=== PATIENT | female | born 1960 | race Caucasian/White ===

== ENCOUNTER → 2017-03-20 | Outpatient (CLI) | payer OTHER, SELFPAY ==
[~2017-03-20] MED LIST: ACET500 PO; AMIT10 PO; ASPI325EC PO; ASPI81CH PO; CALCIUM WITH V1 EACH PO; CHOL10002 PO; GEMF600 PO; GLUC500 PO; HYDR1TAB94 PO; Hair, Skin & N1 EACH PO; IBUP800 PO; LORA1SY PO; Loratadine10 MG PO; MAGNESIUM PO; Mobic15 MG PO; POTA8 PO; Questran4 GM PO; TYLECOD3 PO; VITAMIN B122500 MC1 PO; VITB2
[2017-03-20 14:31] LABS: BASOPHILS ABSOLUTE AUTO 0.02 K/mm3 (0.00-0.23); BASOPHILS PERCENT AUTO 0 % (0-2); EOSINOPHILS ABSOLUTE AUTO 0.22 K/mm3 (0.00-0.68); EOSINOPHILS PERCENT AUTO 3 % (0-6); Hemoglobin 12.4 g/dL (11.5-16.0); IMMATURE GRAN ABSOLUTE AUTO 0.02 K/mm3 (0.00-0.10); IMMATURE GRAN PERCENT AUTO 0 % (0-1); LYMPHOCYTES ABSOLUTE AUTO 2.56 K/mm3 (0.84-5.20); LYMPHOCYTES PERCENT AUTO 31 % (21-46); MONOCYTES ABSOLUTE AUTO 0.49 K/mm3 (0.16-1.47); MONOCYTES PERCENT AUTO 6 % (4-13); Mean Corpuscular HGB Conc 32.6 g/dL (31.5-36.5); Mean Corpuscular Volume 95 fL (80-100); Mean Platelet Volume 10.4 fL (9.1-12.4); NEUTROPHILS ABSOLUTE AUTO 4.91 K/mm3 (1.96-9.15); NEUTROPHILS PERCENT AUTO 60 % (41-73); Platelet Count 302 K/mm3 (150-400); RDW Coefficient Variation 13.8 % (11.7-14.2); RDW Standard Deviation 47.6 fL (35.1-46.3); White Blood Cell Count 8.22 K/mm3 (4.00-11.30)
[2017-03-20 15:01] LABS: Alanine Aminotransfer (ALT/SGP 30 U/L (12-78); Albumin, Blood 3.4 g/dL (3.4-5.0); Albumin/Globulin Ratio 0.9 (0.8-1.8); Alk Phos 106 U/L (50-136); Anion Gap 8 mmol/L (6-16); Aspartate Aminotrans (AST/SGOT 21 U/L (12-37); Bilirubin, Total 0.2 mg/dL (0.1-1.0); Blood Urea Nitrogen 15 mg/dL (8-24); Bun/Creatinine Ratio 17.7 (12.0-20.0); CO2, Blood 24 mmol/L (21-32); Calcium, Blood 8.8 mg/dL (8.5-10.1); Chloride, Blood 108 mmol/L (98-108); Creatinine, Blood 0.85 mg/dL (0.40-1.00); Globulin, Blood 3.6 g/dL (2.2-4.0); Glomerular Filtration Rate >60 (60-); Glucose, Blood 89 mg/dL (70-99); Magnesium, Blood 2.3 mg/dL (1.6-2.4); Potassium, Blood 4.4 mmol/L (3.5-5.5); Sodium, Blood 140 mmol/L (136-145)
== END ==
LOC: LAB 13:39
PROVIDERS: Family Medicine
DX: R53.83 Other fatigue (principal)
CPT/HCPCS: 80053; 82607; 82746; 83735; 84443; 85025

== ENCOUNTER 2017-09-09 08:56 | Emergency (ER) | payer OTHER, SELFPAY ==
[~2017-09-09] VITALS: Ht 170.2 cm; Wt 120.2 kg
== END 2017-09-09 10:30 | disposition home or self-care (01) ==
LOC: ER 08:56
DX: M25.562 Pain in left knee (principal); Z79.899 Other long term (current) drug therapy; Z79.891 Long term (current) use of opiate analgesic; Z79.52 Long term (current) use of systemic steroids; E78.00 Pure hypercholesterolemia, unspecified
CPT/HCPCS: 73562-LT

== ENCOUNTER → 2017-09-24 | Outpatient (CLI) | payer OTHER, SELFPAY ==
[2017-09-25 10:22] LABS: Adenovirus F 40/41 Not Detected (NOT DETECT); Astrovirus Not Detected (NOT DETECT); Campylobacter Sp Not Detected (NOT DETECT); Cryptosporidium Not Detected (NOT DETECT); Cyclospora Cayetanensis Not Detected (NOT DETECT); E. Coli O157 Not Detected (NOT DETECT); Entamoeba Histolytica Not Detected (NOT DETECT); Enteroaggregative E. coli-EAEC Not Detected (NOT DETECT); Enteropathogenic E. coli-EPEC Not Detected (NOT DETECT); Enterotoxigenic E. coli-ETEC Not Detected (NOT DETECT); Giardia Lamblia Not Detected (NOT DETECT); Norovirus GI/GII Not Detected (NOT DETECT); Plesiomonas Shigelloides Not Detected (NOT DETECT); Rotavirus A Not Detected (NOT DETECT); Salmonella Sp Not Detected (NOT DETECT); Sapovirus Not Detected (NOT DETECT); Shiga Toxin-prod E. coli-STEC Not Detected (NOT DETECT); Shigella/Enteroin E. coli-EIEC Not Detected (NOT DETECT); Vibrio Cholerae Not Detected (NOT DETECT); Vibrio Sp Not Detected (NOT DETECT); Yersinia Enterocolitica Not Detected (NOT DETECT)
[2017-09-26 18:06] LABS: FATS, NEUTRAL Increased (.); FATS, TOTAL Increased (.)
== END ==
LOC: LAB 20:15 → LAB FUT 09-24 17:50
PROVIDERS: Internal Medicine Gastroenterology
DX: R19.7 Diarrhea, unspecified (principal)
CPT/HCPCS: 87507

== ENCOUNTER 2017-09-25 08:20 | Day surgery (SDC) | payer OTHER, SELFPAY | END 2017-09-25 23:20 | disposition home or self-care (01) | LOC: RAD 08:20 | PROVIDERS: Radiology Diagnostic Radiology | PROC: BR29YZZ Computerized Tomography (CT Scan) of Lumbar Spine using Other Contrast (ICD-10-PCS; principal; 2017-09-25 10:30) | DX: M51.16 Intervertebral disc disorders with radiculopathy, lumbar region (principal); M48.56XA Collapsed vertebra, not elsewhere classified, lumbar region, initial encounter for fracture; M43.16 Spondylolisthesis, lumbar region | CPT/HCPCS: 62304; 72132; Q9966 ==

== ENCOUNTER 2017-12-03 08:10 | Day surgery (SDC) | payer OTHER ==
[~2017-12-03] VITALS: Ht 172.7 cm; Wt 113.2 kg
[~2017-12-03 08:10] MED LIST changes: -AMIT10 PO; -ASPI325EC PO; -CALCIUM WITH V1 EACH PO; +CHOL10002; -CHOL10002 PO; -HYDR1TAB94 PO; -Loratadine10 MG PO; -MAGNESIUM PO; -Mobic15 MG PO; +POTA8; -POTA8 PO; -Questran4 GM PO; -VITAMIN B122500 MC1 PO
== END 2017-12-03 13:00 | disposition home or self-care (01) ==
LOC: ORSCSDS 08:10
PROVIDERS: Podiatrist Foot & Ankle Surgery
PROC: 0QSN04Z Reposition Right Metatarsal with Internal Fixation Device, Open Approach (ICD-10-PCS; principal; 2017-12-03 09:30)
PROC: 0SNP0ZZ Release Right Toe Phalangeal Joint, Open Approach (ICD-10-PCS; principal; 2017-12-03 09:30)
PROC: 0L8V0ZZ Division of Right Foot Tendon, Open Approach (ICD-10-PCS; principal; 2017-12-03 09:30)
DX: M20.11 Hallux valgus (acquired), right foot (principal); M20.41 Other hammer toe(s) (acquired), right foot; M77.41 Metatarsalgia, right foot; Z87.891 Personal history of nicotine dependence
CPT/HCPCS: C1713; J0690; J1100; J2250; J2405; J3010; J7120

== ENCOUNTER 2018-06-28 06:06 | Day surgery (SDC) | payer OTHER ==
[~2018-06-28] VITALS: Ht 167.6 cm; Wt 114.3 kg
[~2018-06-28 06:06] MED LIST changes: +AMIT10 PO; +CALCIUM WITH V1 EACH PO; -CHOL10002; +CHOL10002 PO; +Loratadine10 MG PO; +MAGNESIUM PO; +Mobic15 MG PO; -POTA8; +POTA8 PO; +Questran4 GM PO; +VITAMIN B122500 MC1 PO
--- NOTE | 2018-06-28 06:51 | NUR ---
PT ADMITTED TO [facility]. AGREES WITH PLANNED SURGERY, ALLERGIES AND HX REVIEWED. LUNG SOUNDS CLEAR.
--- NOTE | 2018-06-28 06:56 | NUR ---
NOSIN 3 AMPULES X3 TO NARES BILATERALLY.
--- NOTE | 2018-06-28 07:36 | NUR ---
SURGERY DELAYED DUE TO EMERGENCY SURGERY.
--- NOTE | 2018-06-28 18:23 | NUR ---
SHIFT SUMMARY PT HAS DONE WELL POST OP BUT WAS SLEEPY INITIALLY. TOLERATING DIET, VOIDING, WORKED WITH THERAPY. PAIN WELL MANAGED.
--- NOTE | 2018-06-28 19:00 | NUR ---
RECEIVED REPORT FROM PREVIOUS RN ANGELA, PT SITTING UP IN CHAIR, A/O X 4, PLEASANT/COOPERATIVE, CALL LIGHT WITHIN REACH
--- NOTE | 2018-06-28 20:19 | NUR ---
PT NAUSEOUS, VOMITED 900 ML PINK CHUNKY EMESIS. PT WITH 1000 ML MUCOUSY LIGHT BROWN STOOL. PT STATES SHE FEELS SHAKY, NO DIZZINESS OR LIGHTHEADEDNESS. PT STATES SHE HAS IBS WITH LOOSE STOOL NORMALLY. PROVIDED IS AND ENCOURAGED PT TO DEEP BREATH, WILL MEDICATE FOR NAUSEA PER MAR
[2018-06-29 04:58] LABS: BASOPHILS ABSOLUTE AUTO 0.03 K/mm3 (0.00-0.23); BASOPHILS PERCENT AUTO 0 % (0-2); EOSINOPHILS PERCENT AUTO 1 % (0-6); Hematocrit 31.8 % (33.0-51.0); Hemoglobin 10.2 g/dL (11.5-16.0); IMMATURE GRAN ABSOLUTE AUTO 0.04 K/mm3 (0.00-0.10); IMMATURE GRAN PERCENT AUTO 0 % (0-1); LYMPHOCYTES ABSOLUTE AUTO 1.84 K/mm3 (0.84-5.20); LYMPHOCYTES PERCENT AUTO 17 % (21-46); MONOCYTES ABSOLUTE AUTO 0.71 K/mm3 (0.16-1.47); MONOCYTES PERCENT AUTO 7 % (4-13); Mean Corpuscular HGB 32.1 pg (26.0-34.0); Mean Corpuscular HGB Conc 32.1 g/dL (31.5-36.5); Mean Corpuscular Volume 100 fL (80-100); NEUTROPHILS ABSOLUTE AUTO 7.88 K/mm3 (1.96-9.15); NEUTROPHILS PERCENT AUTO 74 % (41-73); Platelet Count 283 K/mm3 (150-400); RDW Coefficient Variation 13.2 % (11.7-14.2); RDW Standard Deviation 48.5 fL (35.1-46.3); Red Blood Cell Count 3.18 M/mm3 (3.80-5.20)
[2018-06-29 05:15] LABS: Anion Gap 8 mmol/L (6-16); Blood Urea Nitrogen 16 mg/dL (8-24); Bun/Creatinine Ratio 16.2 (12.0-20.0); CO2, Blood 23 mmol/L (21-32); Calcium, Blood 8.2 mg/dL (8.5-10.1); Chloride, Blood 110 mmol/L (98-108); Creatinine, Blood 0.99 mg/dL (0.40-1.00); Glomerular Filtration Rate >60 (60-); Glucose, Blood 85 mg/dL (70-99); Potassium, Blood 3.8 mmol/L (3.5-5.5); Sodium, Blood 141 mmol/L (136-145)
--- NOTE | 2018-06-29 06:39 | NUR ---
shift summary: vss, no acute changes. pt up to bathroom x 3 this shift with fww, gait belt, continent of bowel/bladder. Two extra large bm, mucousy/loose. pt states she has IBS at baseline. aquacel dressing on L knee remained c/d/i, no shadowing. operative leg with good pedal pulses/cap refil. pt received IV abx per mar, tolerated PO pain medication with control of pain from 5-6/10 down to 2-3/10.
--- NOTE | 2018-06-29 10:21 | NUR ---
THERAPY HERE TO SEE PT.
[2018-06-29] MEDS ORDERED: ASPI325EC PO (14:47)
[2018-06-29] MEDS ORDERED: HYDR1TAB94 PO (14:49)
--- NOTE | 2018-06-29 15:12 | NUR ---
DISCHARGE: PT/FRIEND REPORTS UNDERSTANDING OF DISCHARGE INSTRUCTIONS. PT REPORTS PAIN TOLERABLE WITH PO PAIN MEDICATION. PT CLEARED THERAPY TO GO HOME. PT SENT WITH BELONGINGS AND SCRIPT. OTHER MEDICATION CALLED TO CANDI FRANCIS PER PT REQ. PT SENT WITH ICE MACHINE AND DRESSING SUPPLIES WELL DR GARCIA HANDOUT. IV OUT EARLIER WNL. PT HAS WALKER HERE AND HAS SCRIPT FOR TOILET RISER.
== END 2018-06-29 15:24 | disposition home or self-care (01) ==
LOC: ORSCMMR 06:06 → ORD 07:30 → ORSCMMR 07:30 → SURS 11:51 → ORSCMMR 06-29 15:24
PROVIDERS: Orthopaedic Surgery
PROC: 0SRD0J9 Replacement of Left Knee Joint with Synthetic Substitute, Cemented, Open Approach (ICD-10-PCS; principal; 2018-06-28 07:30)
DX: M17.12 Unilateral primary osteoarthritis, left knee (principal); E78.00 Pure hypercholesterolemia, unspecified; E66.01 Morbid (severe) obesity due to excess calories; Z79.82 Long term (current) use of aspirin
CPT/HCPCS: 36415; 73560-LT; 80048; 83735; 85025; 88300; 97110; 97116; 97162; 97530; C1713; C1776; J0171; J0690; J0735; J1170; J1885; J2250; J2405; J2795; J3010; J7120

== ENCOUNTER 2018-11-29 06:14 | Day surgery (SDC) | payer OTHER ==
[~2018-11-29] VITALS: Ht 170.2 cm; Wt 98.9 kg
[~2018-11-29 06:14] MED LIST changes: +ALBU90OI INH; +ASPI325EC PO; +Amitriptyline H25 MG PO; +BUPR150ER PO; +Budeprion Sr150 MG PO; +CALCIUM-MAGNES1 EAC1 PO; +CYAN500 PO; +Econazole Nitra15 GM TOP; +FISH OIL PO; +Flonase 0.05% N16 GM; +HYDPAM50 PO; +HYDR1TAB94 PO; +INSULANPEN SC; +LORA.5 PO; +LOSA50 PO; +MELO7.5 PO; +METF500 PO; +NITR100CA PO; +NYSTOP POWDER TOP; +Novolog100 UNIT/1 SC; +OMEP20ER PO; +POTCHL20ER PO; +Pravachol40 MG PO; +SPIR25 PO; +Synthroid137 MCG PO; +TRAZ50 PO
--- NOTE | 2018-11-29 06:59 | NUR ---
Ambulatory in Day Surgery History, Chart, Medications and Allergies reviewed before start of procedure. Lungs clear T/O to Auscultation. Patient confirms NPO status and agrees with scheduled surgery. Pre-Op teaching done. Pt verbalizes understanding.
--- NOTE | 2018-11-29 15:57 | NUR ---
PT WORKING WITH THERAPY.
--- NOTE | 2018-11-29 19:33 | NUR ---
SHIFT SUMMARY PT EATING AND DRINKING. PT VOIDING. PT PAIN CONTROLLED ON PO PAIN MEDICATION. PT WALKING TO BATHROOM WITH MINIMAL ASSIST WITH GAIT BELT AND WALKER. PT WORKED WITH THERAPY. PT USING CALL LIGHT APPT. PT BEEN ASSISTED WITH ADL'S PRN.
[2018-11-30 04:28] LABS: BASOPHILS ABSOLUTE AUTO 0.01 K/mm3 (0.00-0.23); BASOPHILS PERCENT AUTO 0 % (0-2); EOSINOPHILS ABSOLUTE AUTO 0.01 K/mm3 (0.00-0.68); EOSINOPHILS PERCENT AUTO 0 % (0-6); Hematocrit 28.8 % (33.0-51.0); Hemoglobin 9.3 g/dL (11.5-16.0); IMMATURE GRAN ABSOLUTE AUTO 0.03 K/mm3 (0.00-0.10); IMMATURE GRAN PERCENT AUTO 0 % (0-1); LYMPHOCYTES ABSOLUTE AUTO 1.75 K/mm3 (0.84-5.20); LYMPHOCYTES PERCENT AUTO 14 % (21-46); MONOCYTES PERCENT AUTO 4 % (4-13); Mean Corpuscular HGB 31.5 pg (26.0-34.0); Mean Corpuscular HGB Conc 32.3 g/dL (31.5-36.5); Mean Corpuscular Volume 98 fL (80-100); Mean Platelet Volume 11.1 fL (9.1-12.4); NEUTROPHILS ABSOLUTE AUTO 9.91 K/mm3 (1.96-9.15); NEUTROPHILS PERCENT AUTO 81 % (41-73); Platelet Count 305 K/mm3 (150-400); RDW Coefficient Variation 13.8 % (11.7-14.2); RDW Standard Deviation 49.8 fL (35.1-46.3); Red Blood Cell Count 2.95 M/mm3 (3.80-5.20); White Blood Cell Count 12.21 K/mm3 (4.00-11.30)
--- NOTE | 2018-11-30 04:28 | NUR ---
SHIFT SUMMARY: PT POD #1 FOR RT TKA. AQUACEL DRESSING CDI WITH POLAR PACK IN PLACE. PT OUT OF BED TO BATHROOM SEVERAL TIMES WITH SBA AND FWW. TREVON ACTIVITY WELL. VOIDING ADEQUATE AMOUNT. SALINE LOCKED. TREVON PO. DENIES N/V. PAIN MANAGED WITH 1 NORCO AND SCHED TORADOL PER EMAR. PLAN FOR POSSIBLE DISCHARGE HOME TODAY.
[2018-11-30 04:45] LABS: Bun/Creatinine Ratio 15.6 (12.0-20.0); Calcium, Blood 8.2 mg/dL (8.5-10.1); Creatinine, Blood 1.09 mg/dL (0.40-1.00); Magnesium, Blood 1.8 mg/dL (1.6-2.4); Potassium, Blood 4.3 mmol/L (3.5-5.5)
[2018-11-30] MEDS ORDERED: HYDR1TAB94 PO (07:39)
[2018-11-30] MEDS ORDERED: ASPI325EC PO (08:50)
--- NOTE | 2018-11-30 11:02 | NUR ---
DISCHARGE PT EDUCATED ON AND RECEIVED PRINTED DC INSTRUCTIONS AND VERB AN UNDERSTANDING. HARD RX FOR NORCO GIVEN TO PT. PT REPORTS F/U SCHEDULED ALREADY. X2 AQUACEL DRESSING GIVEN TO PT. PT LEFT WITH ALL PERSONAL BELONGINGS AND ESCORTED OUT VIA W/C WITH SON.
== END 2018-11-30 11:06 | disposition home or self-care (01) ==
LOC: ORSCMMR 06:14 → ORD 07:30 → SURS 10:51 → ORSCMMR 10:51 → SURS 13:18 → ORSCMMR 11-30 11:06
PROVIDERS: Orthopaedic Surgery
PROC: 0SRC0J9 Replacement of Right Knee Joint with Synthetic Substitute, Cemented, Open Approach (ICD-10-PCS; principal; 2018-11-29 07:30)
DX: M17.11 Unilateral primary osteoarthritis, right knee (principal); E78.5 Hyperlipidemia, unspecified; J45.909 Unspecified asthma, uncomplicated; Z79.899 Other long term (current) drug therapy; E66.9 Obesity, unspecified; Z68.34 Body mass index [BMI] 34.0-34.9, adult; Z79.82 Long term (current) use of aspirin
CPT/HCPCS: 36415; 73560-RT; 80048; 83735; 85025; 88300; 97110; 97116; 97162; 97530; A9270-GY; C1713; C1776; J0171; J0690; J0735; J1100; J1885; J2250; J2405; J2704; J2795; J3010; J7120

== ENCOUNTER → 2018-12-16 | Outpatient (CLI) | payer OTHER | END | disposition home or self-care (01) | LOC: LAB SHORT 14:43 → LAB SRC 14:43 | PROVIDERS: Registered Nurse | DX: Z12.4 Encounter for screening for malignant neoplasm of cervix (principal) | CPT/HCPCS: G0123 ==

== ENCOUNTER → 2019-01-20 | Outpatient (CLI) | payer OTHER ==
[2019-01-20 19:17] LABS: Source, Urine Clean Catch
[2019-01-20 20:01] LABS: Bilirubin, Urine Neg (Neg); Blood, Urine Neg (Neg); Glucose Qualitative, Urine Neg (Neg); Ketones, Urine Neg (Neg); Leukocyte Esterase, Urine Neg (Neg); Nitrite, Urine Neg (Neg); Protein, Urine Neg (Neg); Specific Gravity, Urine 1.015 (1.003-1.022); Urobilinogen, Urine NORM (Normal)
[2019-01-20 20:11] LABS: Appearance, Urine Clear (Clear); Color, Urine Yellow (P-Yellow)
== END | disposition home or self-care (01) ==
LOC: LAB 16:30 → LAB SHORT 16:30
PROVIDERS: Registered Nurse
DX: R30.0 Dysuria (principal)
CPT/HCPCS: 81003

== ENCOUNTER → 2019-02-04 | Outpatient (CLI) | payer OTHER ==
[2019-02-04 22:46] LABS: Campylobacter Sp Not Detected (NOT DETECT)
[2019-02-04 22:47] LABS: Adenovirus F 40/41 Not Detected (NOT DETECT); Astrovirus Not Detected (NOT DETECT); Cryptosporidium Not Detected (NOT DETECT); Cyclospora Cayetanensis Not Detected (NOT DETECT); E. Coli O157 Not Detected (NOT DETECT); Entamoeba Histolytica Not Detected (NOT DETECT); Enteroaggregative E. coli-EAEC Not Detected (NOT DETECT); Enteropathogenic E. coli-EPEC Not Detected (NOT DETECT); Enterotoxigenic E. coli-ETEC Not Detected (NOT DETECT); Giardia Lamblia Not Detected (NOT DETECT); Norovirus GI/GII Not Detected (NOT DETECT); Plesiomonas Shigelloides Not Detected (NOT DETECT); Rotavirus A Not Detected (NOT DETECT); Salmonella Sp Not Detected (NOT DETECT); Sapovirus Not Detected (NOT DETECT); Shiga Toxin-prod E. coli-STEC Not Detected (NOT DETECT); Shigella/Enteroin E. coli-EIEC Not Detected (NOT DETECT); Vibrio Cholerae Not Detected (NOT DETECT); Vibrio Sp Not Detected (NOT DETECT); Yersinia Enterocolitica Not Detected (NOT DETECT)
== END ==
LOC: LAB EV 17:09 → LAB SHORT 17:09
PROVIDERS: Physician Assistant Surgical
DX: R19.7 Diarrhea, unspecified (principal)
CPT/HCPCS: 0097U

== ENCOUNTER 2019-07-05 14:00 | Day surgery (SDC) | payer OTHER ==
[2019-07-05] MEDS ORDERED: ASPIR 8181 M1 PO (14:47)
--- NOTE | 2019-07-05 15:08 | NUR ---
PT WITH C/O ITCHING ON ARMS. PT QUICKLY DEVELOPED LARGE HIVES ON BOTH ARMS.
--- NOTE | 2019-07-05 15:15 | NUR ---
CALL TO DR Mary Alice SEGUNDO CONCERNING PT'S WELTS. GAVE RN ORDERS FOR IV BENADRYL AND IV PEPCID.
--- NOTE | 2019-07-05 16:36 | NUR ---
DISCUSSED WITH PT ABOUT CALLING GI DR'S BACK IF SHE STARTS HAVING MORE PROBLEMS WITH ITCHING.
== END 2019-07-05 16:30 | disposition home or self-care (01) ==
LOC: ATC 14:00
DX: D68.9 Coagulation defect, unspecified (principal); E78.5 Hyperlipidemia, unspecified; Z87.891 Personal history of nicotine dependence; Z79.899 Other long term (current) drug therapy; Z79.82 Long term (current) use of aspirin
CPT/HCPCS: J1200; J3430

== ENCOUNTER 2019-08-05 08:12 | Day surgery (SDC) | payer OTHER ==
[~2019-08-05 08:12] MED LIST changes: +ASPIR 8181 M1 PO
--- NOTE | 2019-08-05 11:57 | NUR ---
1150- Discharge instructions reviewed with patient. Patient verbalizes understanding. Copy given to patient to take home. BANDAIDE TO BACK C/D/I. NO C/O DURING STAY.
--- NOTE | 2019-08-05 11:57 | NUR ---
Discharged via wheelchair to private car for ride home.
== END 2019-08-05 22:58 | disposition home or self-care (01) ==
LOC: RAD 08:12 → CT 10:00 → RAD 22:58
DX: M54.5 Low back pain (principal); S32.010S Wedge compression fracture of first lumbar vertebra, sequela; E78.5 Hyperlipidemia, unspecified; M79.10 Myalgia, unspecified site; M19.90 Unspecified osteoarthritis, unspecified site; Z98.890 Other specified postprocedural states; Z79.899 Other long term (current) drug therapy
CPT/HCPCS: 62304; 72132; Q9966

== ENCOUNTER 2019-08-18 08:19 | Emergency (ER) | payer OTHER ==
[~2019-08-18] VITALS: Ht 162.6 cm; Wt 74.8 kg
[2019-08-18 09:08] LABS: BASOPHILS ABSOLUTE AUTO 0.05 K/mm3 (0.00-0.23); BASOPHILS PERCENT AUTO 0 % (0-2); EOSINOPHILS ABSOLUTE AUTO 0.17 K/mm3 (0.00-0.68); EOSINOPHILS PERCENT AUTO 1 % (0-6); Hematocrit 35.2 % (33.0-51.0); Hemoglobin 11.2 g/dL (11.5-16.0); IMMATURE GRAN ABSOLUTE AUTO 0.04 K/mm3 (0.00-0.10); IMMATURE GRAN PERCENT AUTO 0 % (0-1); LYMPHOCYTES ABSOLUTE AUTO 2.14 K/mm3 (0.84-5.20); LYMPHOCYTES PERCENT AUTO 17 % (21-46); MONOCYTES ABSOLUTE AUTO 0.84 K/mm3 (0.16-1.47); MONOCYTES PERCENT AUTO 7 % (4-13); Mean Corpuscular HGB Conc 31.8 g/dL (31.5-36.5); Mean Corpuscular Volume 98 fL (80-100); Mean Platelet Volume 9.8 fL (9.1-12.4); NEUTROPHILS ABSOLUTE AUTO 9.15 K/mm3 (1.96-9.15); NEUTROPHILS PERCENT AUTO 74 % (41-73); Platelet Count 590 K/mm3 (150-400); RDW Coefficient Variation 13.9 % (11.7-14.2); RDW Standard Deviation 50.2 fL (35.1-46.3); Red Blood Cell Count 3.61 M/mm3 (3.80-5.20); White Blood Cell Count 12.39 K/mm3 (4.00-11.30)
[2019-08-18 09:25] LABS: Bun/Creatinine Ratio 13.8 (12.0-20.0); C-REACTIVE PROTEIN, EXT RANGE 14.6 mg/dL (0.000-0.300); Calcium, Blood 9.2 mg/dL (8.5-10.1); Creatinine, Blood 1.09 mg/dL (0.40-1.00); Potassium, Blood 4.2 mmol/L (3.5-5.5)
[2019-08-18] MEDS ORDERED: Voltaren100 GM TOP (10:51)
== END 2019-08-18 11:07 | disposition home or self-care (01) ==
LOC: ER 08:19
PROVIDERS: Emergency Medicine
DX: M25.462 Effusion, left knee (principal); Z88.8 Allergy status to other drugs, medicaments and biological substances; Z96.653 Presence of artificial knee joint, bilateral; Z91.011 Allergy to milk products; Z88.5 Allergy status to narcotic agent; Z79.899 Other long term (current) drug therapy; Z79.82 Long term (current) use of aspirin
CPT/HCPCS: 36415; 73562-LT; 76705; 80048; 85025; 86140; 93971; 99284-25

== ENCOUNTER → 2019-08-31 | Outpatient (CLI) | payer OTHER ==
[~2019-08-31] MED LIST changes: +Voltaren100 GM TOP
[2019-08-31 20:13] LABS: Percent Saturation 15.5 % (15.0-50.0)
[2019-08-31 20:19] LABS: Alanine Aminotransfer (ALT/SGP 14 U/L (12-78); Albumin, Blood 2.8 g/dL (3.4-5.0); Albumin/Globulin Ratio 0.8 (0.8-1.8); Alk Phos 178 U/L (50-136); Anion Gap 10 mmol/L (6-16); Aspartate Aminotrans (AST/SGOT 23 U/L (12-37); Bilirubin, Total 0.2 mg/dL (0.1-1.0); Blood Urea Nitrogen 17 mg/dL (8-24); CO2, Blood 21 mmol/L (21-32); Chloride, Blood 109 mmol/L (98-108); Globulin, Blood 3.7 g/dL (2.2-4.0); Glomerular Filtration Rate >60 (60-); Glucose, Blood 72 mg/dL (70-99); Potassium, Blood 4.7 mmol/L (3.5-5.5); Sodium, Blood 140 mmol/L (136-145); Total Protein, Blood 6.5 g/dL (6.4-8.2)
== END | disposition home or self-care (01) ==
LOC: LAB 17:07 → LAB SHORT 17:07
PROVIDERS: Internal Medicine Hematology & Oncology
DX: K76.0 Fatty (change of) liver, not elsewhere classified (principal); B35.1 Tinea unguium; M79.7 Fibromyalgia
CPT/HCPCS: 80053; 82652; 82728; 83540; 83550

== ENCOUNTER 2019-09-21 19:42 | Emergency (ER) | payer OTHER ==
[~2019-09-21] VITALS: Ht 170.2 cm; Wt 88.5 kg
[2019-09-21 20:14] LABS: BASOPHILS ABSOLUTE AUTO 0.02 K/mm3 (0.00-0.23); BASOPHILS PERCENT AUTO 0 % (0-2); EOSINOPHILS ABSOLUTE AUTO 0.07 K/mm3 (0.00-0.68); EOSINOPHILS PERCENT AUTO 1 % (0-6); Hematocrit 34.4 % (33.0-51.0); Hemoglobin 10.9 g/dL (11.5-16.0); IMMATURE GRAN ABSOLUTE AUTO 0.04 K/mm3 (0.00-0.10); IMMATURE GRAN PERCENT AUTO 0 % (0-1); LYMPHOCYTES ABSOLUTE AUTO 2.75 K/mm3 (0.84-5.20); LYMPHOCYTES PERCENT AUTO 23 % (21-46); MONOCYTES ABSOLUTE AUTO 1.21 K/mm3 (0.16-1.47); MONOCYTES PERCENT AUTO 10 % (4-13); Mean Corpuscular HGB 30.7 pg (26.0-34.0); Mean Corpuscular HGB Conc 31.7 g/dL (31.5-36.5); Mean Corpuscular Volume 97 fL (80-100); NEUTROPHILS ABSOLUTE AUTO 8.14 K/mm3 (1.96-9.15); NEUTROPHILS PERCENT AUTO 67 % (41-73); Platelet Count 419 K/mm3 (150-400); RDW Coefficient Variation 15.2 % (11.7-14.2); RDW Standard Deviation 54.3 fL (35.1-46.3); Red Blood Cell Count 3.55 M/mm3 (3.80-5.20); White Blood Cell Count 12.23 K/mm3 (4.00-11.30)
[2019-09-21 20:37] LABS: Alanine Aminotransfer (ALT/SGP 14 U/L (12-78); Albumin, Blood 2.4 g/dL (3.4-5.0); Albumin/Globulin Ratio 0.6 (0.8-1.8); Alk Phos 208 U/L (50-136); Anion Gap 8 mmol/L (6-16); Aspartate Aminotrans (AST/SGOT 20 U/L (12-37); Bilirubin, Total 0.3 mg/dL (0.1-1.0); Blood Urea Nitrogen 17 mg/dL (8-24); Bun/Creatinine Ratio 17.2 (12.0-20.0); CO2, Blood 21 mmol/L (21-32); Calcium, Blood 8.4 mg/dL (8.5-10.1); Chloride, Blood 110 mmol/L (98-108); Creatinine, Blood 0.99 mg/dL (0.40-1.00); Globulin, Blood 4.3 g/dL (2.2-4.0); Glomerular Filtration Rate >60 (60-); Glucose, Blood 89 mg/dL (70-99); Potassium, Blood 3.8 mmol/L (3.5-5.5); Sodium, Blood 139 mmol/L (136-145); Total Protein, Blood 6.7 g/dL (6.4-8.2)
[2019-09-21] MEDS ORDERED: Cipro500 MG PO (22:15)
[2019-09-21] MEDS ORDERED: Colace100 MG PO (22:16)
[2019-09-21] MEDS ORDERED: PROBIOTIC1 EAC5 PO (22:16)
[2019-09-21] MEDS ORDERED: Flagyl500 MG PO (22:16)
== END 2019-09-21 22:43 | disposition home or self-care (01) ==
LOC: ER 19:42
PROVIDERS: Emergency Medicine
DX: K52.9 Noninfective gastroenteritis and colitis, unspecified (principal); G62.9 Polyneuropathy, unspecified; Z79.82 Long term (current) use of aspirin; Z79.899 Other long term (current) drug therapy; Z91.011 Allergy to milk products; Z88.8 Allergy status to other drugs, medicaments and biological substances; Z87.891 Personal history of nicotine dependence
CPT/HCPCS: 74177; 80053; 83690; 85025; 93005; 93010; 99284-25; Q9967

== ENCOUNTER 2019-10-12 21:33 | Inpatient (IN) | payer OTHER ==
[~2019-10-12] VITALS: Ht 170.2 cm; Wt 92.2 kg
[~2019-10-12 21:33] MED LIST changes: -Amitriptyline H25 MG PO; +CHOLECALCIFEROL PO; +Cipro500 MG PO; +Colace100 MG PO; +Flagyl500 MG PO; +PROBIOTIC1 EAC5 PO
[2019-10-12 23:50] LABS: BASOPHILS ABSOLUTE AUTO 0.04 K/mm3 (0.00-0.23); BASOPHILS PERCENT AUTO 0 % (0-2); EOSINOPHILS ABSOLUTE AUTO 0.09 K/mm3 (0.00-0.68); EOSINOPHILS PERCENT AUTO 1 % (0-6); Hematocrit 37.8 % (33.0-51.0); Hemoglobin 11.8 g/dL (11.5-16.0); IMMATURE GRAN ABSOLUTE AUTO 0.07 K/mm3 (0.00-0.10); IMMATURE GRAN PERCENT AUTO 1 % (0-1); LYMPHOCYTES ABSOLUTE AUTO 2.22 K/mm3 (0.84-5.20); LYMPHOCYTES PERCENT AUTO 19 % (21-46); MONOCYTES ABSOLUTE AUTO 1.12 K/mm3 (0.16-1.47); MONOCYTES PERCENT AUTO 10 % (4-13); Mean Corpuscular HGB Conc 31.2 g/dL (31.5-36.5); Mean Corpuscular Volume 99 fL (80-100); Mean Platelet Volume 10.8 fL (9.1-12.4); NEUTROPHILS PERCENT AUTO 69 % (41-73); Platelet Count 338 K/mm3 (150-400); RDW Coefficient Variation 15.8 % (11.7-14.2); RDW Standard Deviation 57.8 fL (35.1-46.3); Red Blood Cell Count 3.81 M/mm3 (3.80-5.20); White Blood Cell Count 11.44 K/mm3 (4.00-11.30)
[2019-10-13 00:11] LABS: Albumin, Blood 2.7 g/dL (3.4-5.0); Albumin/Globulin Ratio 0.6 (0.8-1.8); Bilirubin, Total 0.3 mg/dL (0.1-1.0); Bun/Creatinine Ratio 16.8 (12.0-20.0); Calcium, Blood 8.7 mg/dL (8.5-10.1); Creatinine, Blood 1.07 mg/dL (0.40-1.00); Globulin, Blood 4.9 g/dL (2.2-4.0); Potassium, Blood 3.3 mmol/L (3.5-5.5); Total Protein, Blood 7.6 g/dL (6.4-8.2)
[2019-10-13 02:31] LABS: RBC Count, Synovial Fluid 40000 /mm3 (0-0)
[2019-10-13 02:32] LABS: WBC Count, Synovial Fluid 165600 /mm3 (0-180)
[2019-10-13 02:41] LABS: Lymphs, Synovial Fluid 3 % (0-15); Monocytes/Macrophages, Synovia 2 % (0-65); Neutrophils, Synovial Fluid 95 % (0-24)
[2019-10-13 02:42] LABS: Appearance, Synovial Fluid Viscous (Clear); Color, Synovial Fluid Brown (None-P Yel)
--- NOTE | 2019-10-13 04:16 | NUR ---
Transfer report from Jesus PATTON in ER on PT being admitted with septic lt knee. Reported PT had tap in ER with 80 ml brown fluid removed . NPO with ortho consult in PT with hx of LT total knee replacement & septic knee. Await admission
[2019-10-13 06:00] LABS: BASOPHILS ABSOLUTE AUTO 0.02 K/mm3 (0.00-0.23); BASOPHILS PERCENT AUTO 0 % (0-2); EOSINOPHILS ABSOLUTE AUTO 0.08 K/mm3 (0.00-0.68); EOSINOPHILS PERCENT AUTO 1 % (0-6); Hematocrit 34.7 % (33.0-51.0); Hemoglobin 10.7 g/dL (11.5-16.0); IMMATURE GRAN ABSOLUTE AUTO 0.04 K/mm3 (0.00-0.10); IMMATURE GRAN PERCENT AUTO 0 % (0-1); LYMPHOCYTES ABSOLUTE AUTO 2.82 K/mm3 (0.84-5.20); LYMPHOCYTES PERCENT AUTO 30 % (21-46); MONOCYTES PERCENT AUTO 12 % (4-13); Mean Corpuscular HGB 31.1 pg (26.0-34.0); Mean Corpuscular HGB Conc 30.8 g/dL (31.5-36.5); Mean Corpuscular Volume 101 fL (80-100); Mean Platelet Volume 11.4 fL (9.1-12.4); NEUTROPHILS ABSOLUTE AUTO 5.39 K/mm3 (1.96-9.15); NEUTROPHILS PERCENT AUTO 57 % (41-73); Platelet Count 330 K/mm3 (150-400); RDW Coefficient Variation 15.6 % (11.7-14.2); RDW Standard Deviation 57.9 fL (35.1-46.3); Red Blood Cell Count 3.44 M/mm3 (3.80-5.20); White Blood Cell Count 9.45 K/mm3 (4.00-11.30)
[2019-10-13 06:49] LABS: Albumin, Blood 2.5 g/dL (3.4-5.0); Albumin/Globulin Ratio 0.6 (0.8-1.8); Bilirubin, Total 0.4 mg/dL (0.1-1.0); Bun/Creatinine Ratio 14.8 (12.0-20.0); Calcium, Blood 8.7 mg/dL (8.5-10.1); Creatinine, Blood 1.08 mg/dL (0.40-1.00); Globulin, Blood 4.2 g/dL (2.2-4.0); Potassium, Blood 3.2 mmol/L (3.5-5.5); Total Protein, Blood 6.7 g/dL (6.4-8.2)
[2019-10-13] MEDS ORDERED: GABA100 PO ×2 (11:25)
--- NOTE | 2019-10-13 15:54 | NUR ---
Patient is sitting up in bed and alert. Patient immediately tells me about her medical conditions (mainly her knee and back issues), about her frank and about her family. Patient also talks about the many deaths in her family (including her , parents, sister and brother). Patient tells me about the procedure that is scheduled for this afternoon and her concerns. I listen empathically and provide pastoral breastfeeding peer counselor and pre-procedure prayer. Patient responds well and shows signs of reduced stress. I will continue to remain available to patient and family.
--- NOTE | 2019-10-13 18:20 | NUR ---
PATIENT A/OX4, UP WITH SBA TO BSC. ADMITTED FOR L KNEE INFECTION. PAINFUL WITH MOVEMENT, MEDICATING WITH NORCO AND TAMADOL. PATIENT JUST LEFT THE FLOOR TO GO TO THE OR FOR AN I&D. PATIENT HAS BEEN NPO SINCE LAST NIGHT, TAKES PILLS WHOLE WITH WATER. 20G IV TO L AC. UP TO BSC WITH 1 ASSIST. CALM AND COOPERATIVE WITH CARE, CALLS APPROPRIATELY FOR ASSISTANCE.
--- NOTE | 2019-10-13 19:42 | NUR ---
"COVER REMOVER | TO OR This RN helped patient get ready for surgery. Both doctors and corking machine operator RN have seen patient. Report to Manan PATTON. To OR."
--- NOTE | 2019-10-13 20:27 | NUR ---
SURGICAL FLOOR TRANSFER PT IN SURGERY AT THIS TIME FOR I&D OF HER LEFT KNEE. PT HAD ALREADY GONE DOWN TO OR WHEN I ARRIVED ON SHIFT. CALL FROM SURGICAL SERVICES SHORTLY AFTER 1900 TO NOTIFY ME THAT PT WOULD BE TRANSFERRING TO SURGICAL FLOOR AFTER PROCEDURE. STILL AWAITIING SURIGICAL BED ASSIGNMENT AT THIS TIME SO I CAN GIVE REPORT TO RECEIVING NURSE.
--- NOTE | 2019-10-13 22:22 | NUR ---
ASSUMED PT CARE AT 2140 PT ARRIVED IN ICU S/P RECOVERY FROM AND I&D TO LEFT KNEE. PT ARRIVED ON UNIT ALERT AND ORIENTED. 13L NON-REBREATHER. PT ABLE TO DEEP BREATHE AND COUGH. NSR WITH HR 90'S. BP'S BASELINE FOR PT WITH SBP'S 120'S. PT ABLE TO COME OFF NON-REBREATHER SHORTLY AFTER ARRIVAL; CURRENTLY ON ROOM AIR WITH OXYGEN SATURATIONS 94%. LEFT KNEE HAS ROBERTO WRAP IN PLACE WITH HEMOVAC DRAIN WITH MODERATE AMOUNTS OF SANGUINEOUS DRAINAGE NOTED IN CANISTER. MEDICATED WITH FENTANYL X2 D/T 9/10 PAIN TO LEFT KNEE AND BACK. PT CONTINUES TO ASK REPEAT QUESTIONS REGARDING ROOM ASSIGNMENTS AND HOW HER SURGERY WENT. WILL CALL REPORT TO SURGICAL FLOOR RN.
--- NOTE | 2019-10-13 22:26 | NUR ---
CALLED REPORT TO POOJA FRANCOIS
[2019-10-13 22:31] LABS: BODY FLUID RBC 0.025 M/mm3 (0-0); RBC Count, Synovial Fluid 25000 /mm3 (0-0)
[2019-10-13 22:32] LABS: WBC Count, Synovial Fluid 149660 /mm3 (0-180)
--- NOTE | 2019-10-13 22:44 | NUR ---
ARRIVES TO ROOM S/P I&D LEFT KNEE. PT ALERT VSS ON RA PAIN TOLERABLE. BULKY DRESSING TO LEFT KNEE CDI WITH HEMOVAC IN PLACE, EMPTIED 90ML. ABLE TO WIGGLE TOES, STRONG PULSE, DENIES N/T. PT EATING AND DRINKING, CALL LIGHT IN REACH.
[2019-10-13 22:52] LABS: Lymphs, Synovial Fluid 1 % (0-15); Monocytes/Macrophages, Synovia 3 % (0-65); Neutrophils, Synovial Fluid 96 % (0-24)
[2019-10-13 22:53] LABS: Appearance, Synovial Fluid Turbid (Clear); Color, Synovial Fluid White (None-P Yel)
--- NOTE | 2019-10-14 04:43 | NUR ---
POD 1 S/P LEFT KNEE I&D. HAS DONE WELL DURING NIGHT. PAIN MANAGED WELL, GOOD CIRC CHECKS, DRESSING INTACT, HEMOVAC DRAINED 110ML DURING NIGHT TOTAL. PT HAS BEEN UP AMBULATING TO BR USING WALKER AND WBAT. CONT IV ABX. IMAGING CALLED THIS AM STATING THE XRAY ORDERED POST OP WAS NOT DONE. STATES WILL BE UP THIS AM TO GET THE XRAY.
[2019-10-14 04:55] LABS: BASOPHILS ABSOLUTE AUTO 0.01 K/mm3 (0.00-0.23); BASOPHILS PERCENT AUTO 0 % (0-2); EOSINOPHILS ABSOLUTE AUTO 0.01 K/mm3 (0.00-0.68); EOSINOPHILS PERCENT AUTO 0 % (0-6); Hematocrit 31.2 % (33.0-51.0); Hemoglobin 9.9 g/dL (11.5-16.0); IMMATURE GRAN ABSOLUTE AUTO 0.07 K/mm3 (0.00-0.10); IMMATURE GRAN PERCENT AUTO 1 % (0-1); LYMPHOCYTES ABSOLUTE AUTO 1.31 K/mm3 (0.84-5.20); LYMPHOCYTES PERCENT AUTO 10 % (21-46); MONOCYTES ABSOLUTE AUTO 0.35 K/mm3 (0.16-1.47); MONOCYTES PERCENT AUTO 3 % (4-13); Mean Corpuscular HGB 31.7 pg (26.0-34.0); Mean Corpuscular HGB Conc 31.7 g/dL (31.5-36.5); Mean Corpuscular Volume 100 fL (80-100); Mean Platelet Volume 10.8 fL (9.1-12.4); NEUTROPHILS ABSOLUTE AUTO 11.08 K/mm3 (1.96-9.15); NEUTROPHILS PERCENT AUTO 86 % (41-73); Platelet Count 323 K/mm3 (150-400); RDW Coefficient Variation 15.7 % (11.7-14.2); RDW Standard Deviation 58.4 fL (35.1-46.3); Red Blood Cell Count 3.12 M/mm3 (3.80-5.20); White Blood Cell Count 12.83 K/mm3 (4.00-11.30)
[2019-10-14 05:13] LABS: Anion Gap 8 mmol/L (6-16); Blood Urea Nitrogen 17 mg/dL (8-24); Bun/Creatinine Ratio 17.1 (12.0-20.0); CO2, Blood 19 mmol/L (21-32); Calcium, Blood 8.3 mg/dL (8.5-10.1); Chloride, Blood 112 mmol/L (98-108); Glomerular Filtration Rate >60 (60-); Glucose, Blood 139 mg/dL (70-99); Magnesium, Blood 1.9 mg/dL (1.6-2.4); Potassium, Blood 4.2 mmol/L (3.5-5.5); Sodium, Blood 139 mmol/L (136-145)
--- NOTE | 2019-10-14 06:15 | NUR ---
IMAGING HERE FOR THE KNEE XRAY.
--- NOTE | 2019-10-14 07:45 | NUR ---
pt req pain meds not time for po pain meds iv dilaudid given
--- NOTE | 2019-10-14 08:10 | NUR ---
10/14/19 0810 Lyndsey Guzman VERIFICATIONS: EDIT CHART.
--- NOTE | 2019-10-14 09:00 | NUR ---
dr mahan by to see pt plan for picc placement
--- NOTE | 2019-10-14 10:10 | NUR ---
PT AMB IN HALLWAY WITH PHYSICAL THERAPY
--- NOTE | 2019-10-14 12:39 | NUR ---
pt awake eating lunch
--- NOTE | 2019-10-14 13:55 | NUR ---
pt sitting up in recliner chair stated it is better on her back stated she feels better also after her nap
--- NOTE | 2019-10-14 18:08 | NUR ---
PICC LINE DRESSING CHANGED OOZING NOTIFIED MARIA ESTHER PATTON OK TO CHANGE PLACED COBAN WILL MONITOR
--- NOTE | 2019-10-14 18:55 | NUR ---
pressure wrap removed no bleeding noted from picc line
[2019-10-14 23:35] LABS: Vancomycin, Random 16.8 ug/mL
[2019-10-15 05:21] LABS: BASOPHILS ABSOLUTE AUTO 0.02 K/mm3 (0.00-0.23); BASOPHILS PERCENT AUTO 0 % (0-2); EOSINOPHILS ABSOLUTE AUTO 0.08 K/mm3 (0.00-0.68); EOSINOPHILS PERCENT AUTO 1 % (0-6); Hematocrit 25.8 % (33.0-51.0); Hemoglobin 7.9 g/dL (11.5-16.0); IMMATURE GRAN ABSOLUTE AUTO 0.02 K/mm3 (0.00-0.10); IMMATURE GRAN PERCENT AUTO 0 % (0-1); LYMPHOCYTES ABSOLUTE AUTO 2.59 K/mm3 (0.84-5.20); LYMPHOCYTES PERCENT AUTO 38 % (21-46); MONOCYTES ABSOLUTE AUTO 0.52 K/mm3 (0.16-1.47); MONOCYTES PERCENT AUTO 8 % (4-13); Mean Corpuscular HGB Conc 30.6 g/dL (31.5-36.5); Mean Corpuscular Volume 101 fL (80-100); Mean Platelet Volume 11.3 fL (9.1-12.4); NEUTROPHILS ABSOLUTE AUTO 3.58 K/mm3 (1.96-9.15); NEUTROPHILS PERCENT AUTO 53 % (41-73); Platelet Count 294 K/mm3 (150-400); RDW Coefficient Variation 15.9 % (11.7-14.2); RDW Standard Deviation 59.4 fL (35.1-46.3); Red Blood Cell Count 2.55 M/mm3 (3.80-5.20); White Blood Cell Count 6.81 K/mm3 (4.00-11.30)
--- NOTE | 2019-10-15 05:37 | NUR ---
SHIFT SUMMARY POD 2 I&D L KNEE [id number], VSS. PT HAS BEEN UP AND AMBULATING TO BATHROOM WITH FWW AND SBY ASSIST. PT TOLERATING WELL. MEDICATED FOR PAIN PER EMAR. DRAIN COMPRESSED WITH NO OUTPUT TODAY. LEFT KNEE SWOLLEN. PT REPORTING ITCHING INTERMITTENT T/O NIGHT. PLAN WILL BE TO CONTINUE AMBULATING AND CONTINUE WITH IV ABX.
[2019-10-15 05:52] LABS: Bun/Creatinine Ratio 13.7 (12.0-20.0); C-REACTIVE PROTEIN, EXT RANGE 10.6 mg/dL (0.000-0.300); Calcium, Blood 8.1 mg/dL (8.5-10.1); Creatinine, Blood 1.02 mg/dL (0.40-1.00); Potassium, Blood 4.2 mmol/L (3.5-5.5)
--- NOTE | 2019-10-15 16:49 | NUR ---
Shift summary Dressing changed this am by ortho. Aquacel in place with small amount red drainage on dressing. Hemovac drain pulled this am. VSS. Patient received 1 unit PRBC today. Patient taking [place] every 6 hours for pain control. Patient is a SBA with a gaitbelt and FWW. Patient voiding and passing loose stools. Patient tolerating regular diet. Family at bedside this afternoon offering support. Call light within patient reach.
[2019-10-15 18:29] LABS: Vancomycin, Trough 17.1 ug/mL (5.0-10.0)
[2019-10-16 06:12] LABS: BASOPHILS ABSOLUTE AUTO 0.05 K/mm3 (0.00-0.23); BASOPHILS PERCENT AUTO 1 % (0-2); EOSINOPHILS ABSOLUTE AUTO 0.28 K/mm3 (0.00-0.68); EOSINOPHILS PERCENT AUTO 4 % (0-6); Hematocrit 28.2 % (33.0-51.0); Hemoglobin 8.7 g/dL (11.5-16.0); IMMATURE GRAN ABSOLUTE AUTO 0.05 K/mm3 (0.00-0.10); IMMATURE GRAN PERCENT AUTO 1 % (0-1); LYMPHOCYTES ABSOLUTE AUTO 2.62 K/mm3 (0.84-5.20); LYMPHOCYTES PERCENT AUTO 37 % (21-46); MONOCYTES ABSOLUTE AUTO 0.53 K/mm3 (0.16-1.47); MONOCYTES PERCENT AUTO 8 % (4-13); Mean Corpuscular HGB 30.6 pg (26.0-34.0); Mean Corpuscular HGB Conc 30.9 g/dL (31.5-36.5); Mean Corpuscular Volume 99 fL (80-100); Mean Platelet Volume 10.6 fL (9.1-12.4); NEUTROPHILS ABSOLUTE AUTO 3.57 K/mm3 (1.96-9.15); NEUTROPHILS PERCENT AUTO 50 % (41-73); Platelet Count 334 K/mm3 (150-400); RDW Standard Deviation 65.4 fL (35.1-46.3); Red Blood Cell Count 2.84 M/mm3 (3.80-5.20)
--- NOTE | 2019-10-16 06:19 | NUR ---
POD 3 S/P I&D OF LEFT KNEE. PT VSS T/O NIGHT. DRESSING CHANGED X1 R/T SATURATION W/DARK SS DRNG. SWELLING APPEARS SOMEHWAT IMPROVED THIS AM. PT REP TREVON CPM BETTER, UP TO 61 DEGREES THIS AM. PAIN MGD PER EMAR W/REP RELIEF. PT UP OOB W/FWW+SBA, TREVON WELL. PT USING CALL LIGHT FOR ASSISTANCE, WILL CONT TO MONITOR UNTIL REP GIVEN TO ONCOMING RN.
[2019-10-16 06:21] LABS: Anion Gap 6 mmol/L (6-16); Blood Urea Nitrogen 12 mg/dL (8-24); Bun/Creatinine Ratio 13.1 (12.0-20.0); CO2, Blood 22 mmol/L (21-32); Calcium, Blood 8.6 mg/dL (8.5-10.1); Chloride, Blood 113 mmol/L (98-108); Creatinine, Blood 0.91 mg/dL (0.40-1.00); Glomerular Filtration Rate >60 (60-); Glucose, Blood 78 mg/dL (70-99); Potassium, Blood 4.3 mmol/L (3.5-5.5); Sodium, Blood 141 mmol/L (136-145)
--- NOTE | 2019-10-16 14:00 | NUR ---
Report given to POOJA Don who will be resuming patient care. Patient's pain has been controlled with 2 [place] every 6 hours. Dressing to left knee changed this am by ortho. Patient tolerating regular diet. Patient had a shower today and ambulated 100 feet. Patient is a SBA. Plan for patient to d/c to SNF when bed available.
--- NOTE | 2019-10-16 14:06 | NUR ---
ASSUMING CARE OF PT FROM POOJA VIGIL.
--- NOTE | 2019-10-16 17:34 | NUR ---
SUMMARY NO ACUTE CHANGES SINCE ASSUMING CARE OF PT. USED CPM FOR 2 HOURS AND AMBULATED IN [place]. NOW SITTING UP IN CHAIR, EATING DINNER. CALL LIGHT IN REACH
[2019-10-17 05:05] LABS: BASOPHILS ABSOLUTE AUTO 0.04 K/mm3 (0.00-0.23); BASOPHILS PERCENT AUTO 0 % (0-2); EOSINOPHILS ABSOLUTE AUTO 0.37 K/mm3 (0.00-0.68); EOSINOPHILS PERCENT AUTO 4 % (0-6); Hematocrit 28.7 % (33.0-51.0); Hemoglobin 8.7 g/dL (11.5-16.0); IMMATURE GRAN ABSOLUTE AUTO 0.05 K/mm3 (0.00-0.10); IMMATURE GRAN PERCENT AUTO 1 % (0-1); LYMPHOCYTES ABSOLUTE AUTO 3.13 K/mm3 (0.84-5.20); LYMPHOCYTES PERCENT AUTO 34 % (21-46); MONOCYTES ABSOLUTE AUTO 0.58 K/mm3 (0.16-1.47); MONOCYTES PERCENT AUTO 6 % (4-13); Mean Corpuscular HGB 30.3 pg (26.0-34.0); Mean Corpuscular HGB Conc 30.3 g/dL (31.5-36.5); Mean Corpuscular Volume 100 fL (80-100); Mean Platelet Volume 10.3 fL (9.1-12.4); NEUTROPHILS ABSOLUTE AUTO 5.17 K/mm3 (1.96-9.15); NEUTROPHILS PERCENT AUTO 55 % (41-73); Platelet Count 375 K/mm3 (150-400); RDW Coefficient Variation 17.3 % (11.7-14.2); RDW Standard Deviation 63.3 fL (35.1-46.3); Red Blood Cell Count 2.87 M/mm3 (3.80-5.20); White Blood Cell Count 9.34 K/mm3 (4.00-11.30)
[2019-10-17 05:31] LABS: Alanine Aminotransfer (ALT/SGP 15 U/L (12-78); Albumin, Blood 2.4 g/dL (3.4-5.0); Albumin/Globulin Ratio 0.6 (0.8-1.8); Alk Phos 164 U/L (50-136); Anion Gap 3 mmol/L (6-16); Aspartate Aminotrans (AST/SGOT 22 U/L (12-37); Bilirubin, Total 0.4 mg/dL (0.1-1.0); Blood Urea Nitrogen 10 mg/dL (8-24); Bun/Creatinine Ratio 10.8 (12.0-20.0); CO2, Blood 25 mmol/L (21-32); Calcium, Blood 8.7 mg/dL (8.5-10.1); Chloride, Blood 113 mmol/L (98-108); Creatinine, Blood 0.93 mg/dL (0.40-1.00); Globulin, Blood 3.8 g/dL (2.2-4.0); Glomerular Filtration Rate >60 (60-); Glucose, Blood 79 mg/dL (70-99); Magnesium, Blood 1.9 mg/dL (1.6-2.4); Potassium, Blood 4.5 mmol/L (3.5-5.5); Sodium, Blood 141 mmol/L (136-145); Total Protein, Blood 6.2 g/dL (6.4-8.2)
[2019-10-17 05:35] LABS: Vancomycin, Trough 22.6 ug/mL (5.0-10.0)
--- NOTE | 2019-10-17 05:48 | NUR ---
SHIFT SUMMARY LYING IN HIGH FOWLERS WITH EYES CLOSED. HAS BEEN ANIMATED AND TALKATIVE EACH TIME THAT NURSING INTERACTS WITH HER. AMBULATED TO BATHROOM X2 THIS SHIFT. MEDICATED FOR PAIN X1, WILL MEDICATE AGAIN AT 0600 PER PT REQUEST. DRESSINGS ARE C/D/I. ICE PACK IN PLACE TO LEFT KNEE. DENIES FURTHER NEEDS OR WANTS AT THIS TIME. SAFETY MEASURES IN PLACE. WILL CONTINUE TO MONITOR AND GIVE HAND OFF TO ONCOMING SHIFT USING SBAR DURING BEDSIDE REPORT.
--- NOTE | 2019-10-18 04:32 | NUR ---
POD 5 S/P LEFT KNEE I&D. PT DOING WELL, UP AMBULATING WITH JUST SBA WITH WALKER. PAIN MANAGED WITH ORAL NARCOTICS, TOLERATING PO, VOIDING WELL. DRESSING TO LEFT KNEE CDI, CIRC CHECKS WNL. PLAN WILL BE TO DC HOME WITH HOME HEALTH TO HELP MANAGE IV ABX TX.
[2019-10-18] MEDS ORDERED: CIPR750 PO ×2 (14:53)
[2019-10-18] MEDS ORDERED: PROBIOTIC & AC1 EACH PO (14:54)
--- NOTE | 2019-10-18 15:48 | NUR ---
DISCHARGE APPOINTMENTS MADE WITH TREASURE x 2 DAYS. TRANSPORTATION ARRANGED FOR PICK FOR EACH APPOINTMENT BY PATIENT WITH [facility]. PT CALLED DR MISTRY'S OFFICE TO SCHEDULE APOINTMENT AND WAS TOLD THEY WOULD CALL THE PT TO SCHEDULE THIS. SCRIPT FOR NORCO AND OUTPT THERAPY GIVEN. THERPY SCRIPT ALSO FAXED TO [facility] CHO[facility], [facility]. NEW [facility] CALLED TO [facility]. ABUNDANCE OF WOUND CARE SUPPLIES GIVEN FOR DAILY DRSG CHANGES. ESCORTED OUT VIA W/C.
== END 2019-10-18 15:46 | disposition home health service (06) | DRG 486 ==
LOC: ER 21:33 → MEDS 10-13 02:55 → SURS 10-13 22:43
PROVIDERS: Emergency Medicine; Family Medicine; Internal Medicine; Orthopaedic Surgery; Physician Assistant; ADMIT Internal Medicine
PROC: 0SUW09Z Supplement Left Knee Joint, Tibial Surface with Liner, Open Approach (ICD-10-PCS; 2019-10-13)
PROC: 0S9D3ZX Drainage of Left Knee Joint, Percutaneous Approach, Diagnostic (ICD-10-PCS; 2019-10-13)
PROC: 0SPD09Z Removal of Liner from Left Knee Joint, Open Approach (ICD-10-PCS; principal; 2019-10-13 18:45)
PROC: 02HV33Z Insertion of Infusion Device into Superior Vena Cava, Percutaneous Approach (ICD-10-PCS; 2019-10-14)
PROC: 4A02X4A Measurement of Cardiac Electrical Activity, Guidance, External Approach (ICD-10-PCS; 2019-10-14)
PROC: 30233N1 Transfusion of Nonautologous Red Blood Cells into Peripheral Vein, Percutaneous Approach (ICD-10-PCS; 2019-10-15)
DX: T84.54XA Infection and inflammatory reaction due to internal left knee prosthesis, initial encounter (principal); M00.9 Pyogenic arthritis, unspecified; K91.2 Postsurgical malabsorption, not elsewhere classified; G62.9 Polyneuropathy, unspecified; Z20.828 Contact with and (suspected) exposure to other viral communicable diseases; G89.29 Other chronic pain; M54.9 Dorsalgia, unspecified; Y79.2 Prosthetic and other implants, materials and accessory orthopedic devices associated with adverse incidents; Z87.891 Personal history of nicotine dependence; Z98.84 Bariatric surgery status; Z88.5 Allergy status to narcotic agent; Z88.8 Allergy status to other drugs, medicaments and biological substances; Z79.82 Long term (current) use of aspirin; Z79.891 Long term (current) use of opiate analgesic; Z79.899 Other long term (current) drug therapy; Z79.1 Long term (current) use of non-steroidal anti-inflammatories (NSAID)
CPT/HCPCS: 36415; 36430; 36569; 71046; 73560-LT; 73562-LT; 80048; 80053; 80202; 83605; 83735; 84550; 85025; 85651; 86140; 86141; 86850; 86900; 86901; 86923; 87070; 87075; 87205; 87801; 88305; 89051; 94762; 96365; 97110; 97112; 97116; 97162; 99284-25; A9270; A9270-GY; C1751; C1776; J0171; J0696; J1100; J1170; J1650; J1885; J2250; J2405; J2543; J2704; J3010; J3260; J3370; J7030; J7050; J7120; P9016; U0002

== ENCOUNTER 2019-10-19 00:18 | Day surgery (SDC) | payer OTHER ==
[~2019-10-19 00:18] MED LIST changes: +CIPR750 PO; +GABA100 PO; +PROBIOTIC & AC1 EACH PO
== END 2019-10-19 09:20 | disposition home or self-care (01) ==
LOC: ATC 00:18
DX: M00.9 Pyogenic arthritis, unspecified (principal)
CPT/HCPCS: 96365; J3370

== ENCOUNTER 2019-10-20 00:06 | Day surgery (SDC) | payer OTHER | END 2019-10-20 10:04 | disposition home or self-care (01) | LOC: ATC 00:06 | DX: M00.9 Pyogenic arthritis, unspecified (principal); Z88.5 Allergy status to narcotic agent; Z88.8 Allergy status to other drugs, medicaments and biological substances; Z91.011 Allergy to milk products | CPT/HCPCS: 96365; J3370 ==

== ENCOUNTER 2019-10-21 07:43 | Day surgery (SDC) | payer OTHER | END 2019-10-21 10:26 | disposition home or self-care (01) | LOC: ATC 07:43 | DX: M00.9 Pyogenic arthritis, unspecified (principal); Z88.5 Allergy status to narcotic agent; Z91.011 Allergy to milk products; Z88.8 Allergy status to other drugs, medicaments and biological substances | CPT/HCPCS: 36593; 96365; J2997; J3370 ==

== ENCOUNTER 2019-10-25 00:04 | Day surgery (SDC) | payer OTHER | END 2019-10-25 12:19 | disposition home or self-care (01) | LOC: ATC 00:04 | DX: M00.9 Pyogenic arthritis, unspecified (principal); Z88.5 Allergy status to narcotic agent; Z88.8 Allergy status to other drugs, medicaments and biological substances; Z91.011 Allergy to milk products | CPT/HCPCS: 96365; J3370 ==

== ENCOUNTER 2019-10-28 00:17 | Day surgery (SDC) | payer OTHER | END 2019-10-28 11:15 | disposition home or self-care (01) | LOC: ATC 00:17 | DX: M00.9 Pyogenic arthritis, unspecified (principal); Z88.5 Allergy status to narcotic agent; Z88.8 Allergy status to other drugs, medicaments and biological substances | CPT/HCPCS: 96365; J3370 ==

== ENCOUNTER 2019-10-29 00:37 | Day surgery (SDC) | payer OTHER ==
[2019-10-29 11:00] LABS: Creatinine, Blood 1.12 mg/dL (0.40-1.00); Vancomycin, Trough 16.4 ug/mL (5.0-10.0)
== END 2019-10-29 11:48 | disposition home or self-care (01) ==
LOC: ATC 00:37
PROVIDERS: Internal Medicine
DX: M00.9 Pyogenic arthritis, unspecified (principal); Z88.5 Allergy status to narcotic agent; Z88.8 Allergy status to other drugs, medicaments and biological substances
CPT/HCPCS: 80202; 82565; 96365; J3370

== ENCOUNTER 2019-10-30 00:38 | Day surgery (SDC) | payer OTHER | END 2019-10-30 11:33 | disposition home or self-care (01) | LOC: ATC 00:38 | DX: M00.9 Pyogenic arthritis, unspecified (principal); Z88.5 Allergy status to narcotic agent; Z88.8 Allergy status to other drugs, medicaments and biological substances; Z91.011 Allergy to milk products | CPT/HCPCS: 96365; J3370 ==

== ENCOUNTER 2019-10-31 00:08 | Day surgery (SDC) | payer OTHER | END 2019-10-31 10:40 | disposition home or self-care (01) | LOC: ATC 00:08 | DX: M00.9 Pyogenic arthritis, unspecified (principal); Z88.5 Allergy status to narcotic agent; Z88.8 Allergy status to other drugs, medicaments and biological substances; Z91.011 Allergy to milk products; Z96.659 Presence of unspecified artificial knee joint; Z87.39 Personal history of other diseases of the musculoskeletal system and connective tissue | CPT/HCPCS: 96365; J3370 ==

== ENCOUNTER 2019-11-01 01:18 | Day surgery (SDC) | payer OTHER ==
[2019-11-01 11:07] LABS: Creatinine, Blood 1.17 mg/dL (0.40-1.00); Vancomycin, Trough 16.2 ug/mL (5.0-10.0)
== END 2019-11-01 11:52 | disposition home or self-care (01) ==
LOC: ATC 01:18
PROVIDERS: Internal Medicine
DX: M00.9 Pyogenic arthritis, unspecified (principal); Z88.5 Allergy status to narcotic agent; Z88.8 Allergy status to other drugs, medicaments and biological substances; Z91.011 Allergy to milk products; Z96.659 Presence of unspecified artificial knee joint; Z87.39 Personal history of other diseases of the musculoskeletal system and connective tissue
CPT/HCPCS: 80202; 82565; 96365; J3370

== ENCOUNTER 2019-11-05 | Day surgery (SDC) | payer OTHER | END 2019-11-05 11:48 | disposition home or self-care (01) | LOC: ATC | DX: M00.9 Pyogenic arthritis, unspecified (principal); Z88.5 Allergy status to narcotic agent; Z88.8 Allergy status to other drugs, medicaments and biological substances; Z91.011 Allergy to milk products; K52.9 Noninfective gastroenteritis and colitis, unspecified; Z87.39 Personal history of other diseases of the musculoskeletal system and connective tissue; Z96.659 Presence of unspecified artificial knee joint | CPT/HCPCS: 96365; J3370 ==

== ENCOUNTER 2019-11-06 00:03 | Day surgery (SDC) | payer OTHER | END 2019-11-06 14:55 | disposition home or self-care (01) | LOC: ATC 00:03 | DX: M00.9 Pyogenic arthritis, unspecified (principal); K52.9 Noninfective gastroenteritis and colitis, unspecified; Z88.5 Allergy status to narcotic agent; Z88.8 Allergy status to other drugs, medicaments and biological substances; Z91.011 Allergy to milk products; Z96.659 Presence of unspecified artificial knee joint; Z87.39 Personal history of other diseases of the musculoskeletal system and connective tissue | CPT/HCPCS: 96365; J3370 ==

== ENCOUNTER 2019-11-08 00:50 | Day surgery (SDC) | payer OTHER | END 2019-11-08 11:29 | disposition home or self-care (01) | LOC: ATC 00:50 | DX: M00.9 Pyogenic arthritis, unspecified (principal); Z88.5 Allergy status to narcotic agent; Z91.011 Allergy to milk products; Z88.8 Allergy status to other drugs, medicaments and biological substances; K52.9 Noninfective gastroenteritis and colitis, unspecified; Z79.899 Other long term (current) drug therapy | CPT/HCPCS: 96365; J3370 ==

== ENCOUNTER 2019-11-14 00:38 | Day surgery (SDC) | payer OTHER | END 2019-11-14 11:46 | disposition home or self-care (01) | LOC: ATC 00:38 | DX: M00.9 Pyogenic arthritis, unspecified (principal); Z88.5 Allergy status to narcotic agent; Z88.8 Allergy status to other drugs, medicaments and biological substances | CPT/HCPCS: 96365; J3370 ==

== ENCOUNTER 2019-11-15 00:14 | Day surgery (SDC) | payer OTHER | END 2019-11-15 11:36 | disposition home or self-care (01) | LOC: ATC 00:14 | DX: M00.9 Pyogenic arthritis, unspecified (principal); Z88.5 Allergy status to narcotic agent; Z88.8 Allergy status to other drugs, medicaments and biological substances; Z91.011 Allergy to milk products; Z96.659 Presence of unspecified artificial knee joint; Z87.39 Personal history of other diseases of the musculoskeletal system and connective tissue; K52.9 Noninfective gastroenteritis and colitis, unspecified | CPT/HCPCS: 96365; J3370 ==

== ENCOUNTER 2019-11-19 10:16 | Day surgery (SDC) | payer OTHER ==
[2019-11-19 11:01] LABS: Creatinine, Blood 1.01 mg/dL (0.40-1.00); Vancomycin, Trough 16.6 ug/mL (5.0-10.0)
== END 2019-11-19 11:47 | disposition home or self-care (01) ==
LOC: ATC 10:16
PROVIDERS: Internal Medicine
DX: M00.9 Pyogenic arthritis, unspecified (principal); K52.9 Noninfective gastroenteritis and colitis, unspecified; Z88.5 Allergy status to narcotic agent; Z88.8 Allergy status to other drugs, medicaments and biological substances; Z91.011 Allergy to milk products; Z79.899 Other long term (current) drug therapy; Z87.39 Personal history of other diseases of the musculoskeletal system and connective tissue; Z96.659 Presence of unspecified artificial knee joint
CPT/HCPCS: 80202; 82565; 96365; J3370

== ENCOUNTER 2019-11-20 00:06 | Day surgery (SDC) | payer OTHER | END 2019-11-20 14:39 | disposition home or self-care (01) | LOC: ATC 00:06 | DX: M00.9 Pyogenic arthritis, unspecified (principal); K52.9 Noninfective gastroenteritis and colitis, unspecified; Z88.5 Allergy status to narcotic agent; Z88.8 Allergy status to other drugs, medicaments and biological substances; Z91.011 Allergy to milk products | CPT/HCPCS: 96365; J3370 ==

== ENCOUNTER 2019-11-29 00:07 | Day surgery (SDC) | payer OTHER ==
--- NOTE | 2019-11-29 12:42 | NUR ---
LAST DAY OF VANCOMYCIN. PT REPORTS SHE HAS AN APPT WITH DR HARTLEY @ 2:30. WILL LET US KNOW IF HE WANTS THE PICC DC'D AND TO SEND ORDERS.
== END 2019-11-29 12:34 | disposition home or self-care (01) ==
LOC: ATC 00:07
DX: M00.9 Pyogenic arthritis, unspecified (principal); K52.9 Noninfective gastroenteritis and colitis, unspecified; Z96.659 Presence of unspecified artificial knee joint; Z87.39 Personal history of other diseases of the musculoskeletal system and connective tissue; Z88.5 Allergy status to narcotic agent; Z88.8 Allergy status to other drugs, medicaments and biological substances; Z91.011 Allergy to milk products; Z79.899 Other long term (current) drug therapy
CPT/HCPCS: 96365; J3370

== ENCOUNTER → 2019-12-13 | Outpatient (CLI) | payer OTHER | END | disposition home or self-care (01) | LOC: LAB 14:18 → LAB SHORT 14:18 | DX: T84.54XD Infection and inflammatory reaction due to internal left knee prosthesis, subsequent encounter (principal) | CPT/HCPCS: 87070; 87205 ==

== ENCOUNTER → 2020-01-12 | Outpatient (CLI) | payer OTHER ==
[~2020-01-12] MED LIST changes: +AMOX875 PO; +CYCL10 PO; +Ibuprofen600 MG PO
[2020-01-12 16:47] LABS: BASOPHILS ABSOLUTE AUTO 0.07 K/mm3 (0.00-0.23); BASOPHILS PERCENT AUTO 1 % (0-2); EOSINOPHILS ABSOLUTE AUTO 2.21 K/mm3 (0.00-0.68); EOSINOPHILS PERCENT AUTO 18 % (0-6); Hematocrit 29.5 % (33.0-51.0); Hemoglobin 10.1 g/dL (11.5-16.0); IMMATURE GRAN ABSOLUTE AUTO 0.08 K/mm3 (0.00-0.10); IMMATURE GRAN PERCENT AUTO 1 % (0-1); LYMPHOCYTES ABSOLUTE AUTO 2.92 K/mm3 (0.84-5.20); LYMPHOCYTES PERCENT AUTO 23 % (21-46); MONOCYTES ABSOLUTE AUTO 0.55 K/mm3 (0.16-1.47); MONOCYTES PERCENT AUTO 4 % (4-13); Mean Corpuscular HGB 32.8 pg (26.0-34.0); Mean Corpuscular HGB Conc 34.2 g/dL (31.5-36.5); Mean Corpuscular Volume 96 fL (80-100); Mean Platelet Volume 10.9 fL (9.1-12.4); NEUTROPHILS ABSOLUTE AUTO 6.71 K/mm3 (1.96-9.15); NEUTROPHILS PERCENT AUTO 54 % (41-73); Platelet Count 337 K/mm3 (150-400); RDW Coefficient Variation 14.1 % (11.7-14.2); RDW Standard Deviation 48.5 fL (35.1-46.3); Red Blood Cell Count 3.08 M/mm3 (3.80-5.20); White Blood Cell Count 12.54 K/mm3 (4.00-11.30)
[2020-01-12 16:54] LABS: Bun/Creatinine Ratio 14.7 (12.0-20.0); Calcium, Blood 8.2 mg/dL (8.5-10.1); Creatinine, Blood 1.36 mg/dL (0.40-1.00); Potassium, Blood 2.9 mmol/L (3.5-5.5)
== END | disposition home or self-care (01) ==
LOC: LAB SHORT 16:41 → LAB EV 16:41
PROVIDERS: Physician Assistant
DX: K92.1 Melena (principal); R19.7 Diarrhea, unspecified
CPT/HCPCS: 80048; 85025; 87493

== ENCOUNTER → 2020-01-20 | Outpatient (CLI) | payer OTHER ==
[~2020-01-20] MED LIST changes: +ONDA4ODT SL
[2020-01-20 15:42] LABS: Alanine Aminotransfer (ALT/SGP 16 U/L (12-78); Albumin, Blood 2.5 g/dL (3.4-5.0); Alk Phos 147 U/L (50-136); Anion Gap 8 mmol/L (6-16); Aspartate Aminotrans (AST/SGOT 17 U/L (12-37); Bilirubin, Total 0.2 mg/dL (0.1-1.0); Blood Urea Nitrogen 18 mg/dL (8-24); Bun/Creatinine Ratio 18.2 (12.0-20.0); CO2, Blood 20 mmol/L (21-32); Calcium, Blood 7.9 mg/dL (8.5-10.1); Chloride, Blood 117 mmol/L (98-108); Creatinine, Blood 0.99 mg/dL (0.40-1.00); Globulin, Blood 2.5 g/dL (2.2-4.0); Glomerular Filtration Rate >60 (60-); Glucose, Blood 77 mg/dL (70-99); Phosphorus, Blood 3.7 mg/dL (2.5-4.9); Potassium, Blood 3.7 mmol/L (3.5-5.5); Sodium, Blood 145 mmol/L (136-145)
== END | disposition home or self-care (01) ==
LOC: LAB 10:00 → LAB SHORT 10:00
PROVIDERS: Internal Medicine Hematology & Oncology
DX: D50.9 Iron deficiency anemia, unspecified (principal)
CPT/HCPCS: 80053; 84100

== ENCOUNTER → 2020-01-27 | Outpatient (CLI) | payer OTHER | END | disposition home or self-care (01) | LOC: LAB 15:23 → LAB SHORT 15:23 | DX: K52.9 Noninfective gastroenteritis and colitis, unspecified (principal) | CPT/HCPCS: 83993 ==

== ENCOUNTER 2020-03-15 20:12 | Emergency (ER) | payer OTHER ==
[~2020-03-15] VITALS: Ht 170.2 cm; Wt 88.5 kg
== END 2020-03-15 23:16 | disposition home or self-care (01) ==
LOC: ER 20:12
DX: S86.112A Strain of other muscle(s) and tendon(s) of posterior muscle group at lower leg level, left leg, initial encounter (principal); S80.12XA Contusion of left lower leg, initial encounter; Z88.5 Allergy status to narcotic agent; Z88.8 Allergy status to other drugs, medicaments and biological substances; Z79.82 Long term (current) use of aspirin; Z79.899 Other long term (current) drug therapy
CPT/HCPCS: 73560-LT; 73590; 93971; 99284-25

== ENCOUNTER → 2020-05-08 | Outpatient (CLI) | payer MEDICARE, OTHER ==
[2020-05-09 13:11] LABS: HPV 16 Negative (Negative); HPV 18 Negative (Negative); HPV OTHER HR TYPES Negative (Negative)
== END | disposition home or self-care (01) ==
LOC: LAB 08:45 → LAB SHORT 08:45
PROVIDERS: Registered Nurse
DX: Z12.4 Encounter for screening for malignant neoplasm of cervix (principal)
CPT/HCPCS: 87624; G0123

== ENCOUNTER → 2020-05-18 | Outpatient (CLI) | payer MEDICARE, OTHER | END | disposition home or self-care (01) | LOC: LAB EV 10:20 → LAB 10:20 → LAB SHORT 10:20 | PROVIDERS: Internal Medicine Hematology & Oncology | DX: D50.9 Iron deficiency anemia, unspecified (principal) | CPT/HCPCS: 82728; 83540; 83550 ==

== ENCOUNTER 2020-07-03 12:54 | Day surgery (SDC) | payer MEDICARE, OTHER ==
[~2020-07-03] VITALS: Ht 170.2 cm; Wt 90.0 kg
== END 2020-07-03 15:00 | disposition home or self-care (01) ==
LOC: ORSCSDS 12:54
PROVIDERS: Internal Medicine Gastroenterology
PROC: 0DBM8ZX Excision of Descending Colon, Via Natural or Artificial Opening Endoscopic, Diagnostic (ICD-10-PCS; principal; 2020-07-03 13:45)
PROC: 0DBP8ZX Excision of Rectum, Via Natural or Artificial Opening Endoscopic, Diagnostic (ICD-10-PCS; principal; 2020-07-03 13:45)
PROC: 0DBE8ZX Excision of Large Intestine, Via Natural or Artificial Opening Endoscopic, Diagnostic (ICD-10-PCS; principal; 2020-07-03 13:45)
DX: K52.9 Noninfective gastroenteritis and colitis, unspecified (principal); D12.4 Benign neoplasm of descending colon; R19.7 Diarrhea, unspecified; K57.30 Diverticulosis of large intestine without perforation or abscess without bleeding; K64.8 Other hemorrhoids; Z87.891 Personal history of nicotine dependence; K76.0 Fatty (change of) liver, not elsewhere classified; Z79.899 Other long term (current) drug therapy; Z79.82 Long term (current) use of aspirin
CPT/HCPCS: 88305; J2704; J7040; J7120

== ENCOUNTER → 2020-08-24 | Outpatient (CLI) | payer MEDICARE, OTHER ==
[2020-08-24 21:12] LABS: Alanine Aminotransfer (ALT/SGP 18 U/L (12-78); Alk Phos 511 U/L (50-136); Anion Gap 6 mmol/L (6-16); Aspartate Aminotrans (AST/SGOT 15 U/L (12-37); Bilirubin, Total 0.2 mg/dL (0.1-1.0); Blood Urea Nitrogen 18 mg/dL (8-24); Bun/Creatinine Ratio 18.4 (12.0-20.0); CO2, Blood 25 mmol/L (21-32); Calcium, Blood 8.5 mg/dL (8.5-10.1); Chloride, Blood 108 mmol/L (98-108); Creatinine, Blood 0.98 mg/dL (0.40-1.00); Globulin, Blood 2.9 g/dL (2.2-4.0); Glomerular Filtration Rate >60 (60-); Glucose, Blood 79 mg/dL (70-99); Phosphorus, Blood 2.9 mg/dL (2.5-4.9); Potassium, Blood 4.6 mmol/L (3.5-5.5); Sodium, Blood 139 mmol/L (136-145); Total Protein, Blood 5.9 g/dL (6.4-8.2)
== END | disposition home or self-care (01) ==
LOC: LAB 15:47 → LAB SHORT 15:47
PROVIDERS: Internal Medicine Hematology & Oncology
DX: D50.9 Iron deficiency anemia, unspecified (principal); E53.8 Deficiency of other specified B group vitamins
CPT/HCPCS: 80053; 82607; 82746; 84100

== ENCOUNTER 2020-10-04 12:54 | Day surgery (SDC) | payer MEDICARE, OTHER ==
[~2020-10-04] VITALS: Ht 172.7 cm; Wt 88.4 kg
== END 2020-10-04 14:45 | disposition home or self-care (01) ==
LOC: ORSCSDS 12:54
PROVIDERS: Internal Medicine Gastroenterology
PROC: 0DB68ZX Excision of Stomach, Via Natural or Artificial Opening Endoscopic, Diagnostic (ICD-10-PCS; principal; 2020-10-04 14:15)
PROC: 0DB98ZX Excision of Duodenum, Via Natural or Artificial Opening Endoscopic, Diagnostic (ICD-10-PCS; principal; 2020-10-04 14:15)
DX: R19.7 Diarrhea, unspecified (principal); K29.70 Gastritis, unspecified, without bleeding; K50.90 Crohn's disease, unspecified, without complications; D64.9 Anemia, unspecified; Z79.82 Long term (current) use of aspirin; Z79.899 Other long term (current) drug therapy
CPT/HCPCS: 88305; 88342; J2704; J7120

== ENCOUNTER → 2021-02-05 | Outpatient (CLI) | payer MEDICARE, OTHER ==
[2021-02-05 15:46] LABS: BASOPHILS ABSOLUTE AUTO 0.04 K/mm3 (0.00-0.23); BASOPHILS PERCENT AUTO 0 % (0-2); EOSINOPHILS ABSOLUTE AUTO 0.15 K/mm3 (0.00-0.68); EOSINOPHILS PERCENT AUTO 1 % (0-6); Hematocrit 36.9 % (33.0-51.0); Hemoglobin 12.3 g/dL (11.5-16.0); IMMATURE GRAN ABSOLUTE AUTO 0.04 K/mm3 (0.00-0.10); IMMATURE GRAN PERCENT AUTO 0 % (0-1); LYMPHOCYTES ABSOLUTE AUTO 2.25 K/mm3 (0.84-5.20); LYMPHOCYTES PERCENT AUTO 20 % (21-46); MONOCYTES ABSOLUTE AUTO 0.59 K/mm3 (0.16-1.47); MONOCYTES PERCENT AUTO 5 % (4-13); Mean Corpuscular HGB 33.2 pg (26.0-34.0); Mean Corpuscular HGB Conc 33.3 g/dL (31.5-36.5); Mean Corpuscular Volume 100 fL (80-100); Mean Platelet Volume 10.3 fL (9.1-12.4); NEUTROPHILS ABSOLUTE AUTO 8.12 K/mm3 (1.96-9.15); NEUTROPHILS PERCENT AUTO 73 % (41-73); Platelet Count 417 K/mm3 (150-400); RDW Coefficient Variation 13.2 % (11.7-14.2); RDW Standard Deviation 48.4 fL (35.1-46.3); Red Blood Cell Count 3.71 M/mm3 (3.80-5.20); White Blood Cell Count 11.19 K/mm3 (4.00-11.30)
[2021-02-05 16:04] LABS: Alanine Aminotransfer (ALT/SGP 20 U/L (12-78); Albumin, Blood 3.1 g/dL (3.4-5.0); Albumin/Globulin Ratio 0.7 (0.8-1.8); Alk Phos 229 U/L (40-126); Anion Gap 9 mmol/L (6-16); Aspartate Aminotrans (AST/SGOT 18 U/L (12-37); Bilirubin, Total 0.1 mg/dL (0.1-1.0); Blood Urea Nitrogen 18 mg/dL (8-24); Bun/Creatinine Ratio 15.4 (12.0-20.0); CO2, Blood 25 mmol/L (21-32); Calcium, Blood 9.1 mg/dL (8.5-10.1); Chloride, Blood 105 mmol/L (98-108); Creatinine, Blood 1.17 mg/dL (0.40-1.00); Globulin, Blood 4.2 g/dL (2.2-4.0); Glomerular Filtration Rate 47 (60-); Glucose, Blood 85 mg/dL (70-99); Potassium, Blood 4.6 mmol/L (3.5-5.5); Sodium, Blood 139 mmol/L (136-145); Thyroid Stimulating Hormone 3.539 uIU/mL (0.360-4.800); Total Protein, Blood 7.3 g/dL (6.4-8.2); Troponin I <0.017 ng/mL (0.000-0.040)
== END | disposition home or self-care (01) ==
LOC: LAB SHORT 15:41
PROVIDERS: Chiropractor
DX: R07.9 Chest pain, unspecified (principal); R53.83 Other fatigue
CPT/HCPCS: 80053; 83880; 84443; 84484; 85025; 85379

== ENCOUNTER 2021-02-10 19:52 | Emergency (ER) | payer MEDICARE, OTHER ==
[~2021-02-10] VITALS: Ht 170.2 cm; Wt 90.7 kg
[2021-02-10 20:13] LABS: Source, Urine Clean Catch
[2021-02-10 20:16] LABS: Appearance, Urine Clear (Clear); Bilirubin, Urine Neg (Neg); Blood, Urine 1+ (Neg); Color, Urine Yellow (P-Yellow); Glucose Qualitative, Urine Neg (Neg); Ketones, Urine Neg (Neg); Leukocyte Esterase, Urine 1+ (Neg); Nitrite, Urine Neg (Neg); Protein, Urine Neg (Neg); Urobilinogen, Urine NORM (Normal)
[2021-02-10 20:29] LABS: Bacteria Few /hpf; Red Blood Cells, Urine 0-2 /hpf (0-2); Squamous Epithelial Cells Rare /hpf (Few); Transitional Epithelial Cells Rare /hpf (0-Rare)
[2021-02-10] MEDS ORDERED: Macrobid 100 M100 MG PO (20:39)
== END 2021-02-10 20:52 | disposition home or self-care (01) ==
LOC: ER 19:52
PROVIDERS: Physician Assistant
DX: K59.00 Constipation, unspecified (principal); N39.0 Urinary tract infection, site not specified; E78.5 Hyperlipidemia, unspecified; Z87.891 Personal history of nicotine dependence; Z79.899 Other long term (current) drug therapy
CPT/HCPCS: 81001; 87086; 99283; A9270

== ENCOUNTER 2021-02-22 15:44 | Emergency (ER) | payer MEDICARE, OTHER ==
[~2021-02-22] VITALS: Ht 170.2 cm; Wt 90.7 kg
[~2021-02-22 15:44] MED LIST changes: -CODACE30 PO
[2021-02-22] MEDS ORDERED: CODACE30 PO (20:25)
== END 2021-02-22 20:51 | disposition home or self-care (01) ==
LOC: ER 15:44
DX: M13.0 Polyarthritis, unspecified (principal); E78.5 Hyperlipidemia, unspecified; Z87.891 Personal history of nicotine dependence; Z79.899 Other long term (current) drug therapy; Z88.8 Allergy status to other drugs, medicaments and biological substances
CPT/HCPCS: 73100; 73560-RT; 99283-25

== ENCOUNTER → 2021-02-22 | Outpatient (CLI) | payer MEDICARE, OTHER ==
[~2021-02-22] MED LIST changes: +CODACE30 PO; +Macrobid 100 M100 MG PO
[2021-02-22 10:44] LABS: Source, Urine Clean Catch
[2021-02-22 13:39] LABS: Appearance, Urine Hazy (Clear); Bilirubin, Urine Neg (Neg); Blood, Urine Neg (Neg); Color, Urine Yellow (P-Yellow); Glucose Qualitative, Urine Neg (Neg); Ketones, Urine Neg (Neg); Leukocyte Esterase, Urine Neg (Neg); Nitrite, Urine Neg (Neg); Protein, Urine 1+ (Neg); Specific Gravity, Urine 1.015 (1.003-1.022); Urobilinogen, Urine NORM (Normal)
[2021-02-22 13:58] LABS: Red Blood Cells, Urine 0-2 /hpf (0-2); Squamous Epithelial Cells Rare /hpf (Few)
[2021-02-22 13:59] LABS: Bacteria Rare /hpf; Calcium Oxalate Crystals Many /hpf
== END | disposition home or self-care (01) ==
LOC: LAB 10:41 → LAB SHORT 10:41
PROVIDERS: Registered Nurse
DX: R39.15 Urgency of urination (principal)
CPT/HCPCS: 81001

== ENCOUNTER → 2021-06-21 | Outpatient (CLI) | payer MEDICARE, OTHER ==
[~2021-06-21] MED LIST changes: +CODACE30 PO
[2021-06-24 15:08] LABS: HPV 16 Negative (Negative); HPV 18 Negative (Negative); HPV OTHER HR TYPES Negative (Negative)
== END | disposition home or self-care (01) ==
LOC: LAB SHORT 17:48 → LAB 17:48
PROVIDERS: Registered Nurse
DX: Z12.4 Encounter for screening for malignant neoplasm of cervix (principal)
CPT/HCPCS: 87624; G0123

== ENCOUNTER 2021-09-16 15:57 | Emergency (ER) | payer MEDICARE, OTHER ==
[~2021-09-16] VITALS: Ht 170.2 cm; Wt 86.2 kg
[2021-09-16] MEDS ORDERED: DEXT30SU PO (18:23)
== END 2021-09-16 18:53 | disposition home or self-care (01) ==
LOC: ER 15:57
DX: J02.9 Acute pharyngitis, unspecified (principal); M79.671 Pain in right foot; M25.561 Pain in right knee; Z88.5 Allergy status to narcotic agent; Z88.8 Allergy status to other drugs, medicaments and biological substances; Z91.011 Allergy to milk products; Z79.899 Other long term (current) drug therapy; W19.XXXA Unspecified fall, initial encounter
CPT/HCPCS: 73562-RT; 73630; 99283-25; A9270

== ENCOUNTER → 2022-01-28 | Outpatient (CLI) | payer MEDICARE, OTHER ==
[~2022-01-28] MED LIST changes: +DEXT30SU PO
== END | disposition home or self-care (01) ==
LOC: LAB SHORT 09:33 → LAB 09:33
DX: M25.531 Pain in right wrist (principal); M25.532 Pain in left wrist
CPT/HCPCS: 85651; 86140; 86200; 86430

== ENCOUNTER 2022-02-26 11:19 | Emergency (ER) | payer MEDICARE, OTHER ==
[~2022-02-26] VITALS: Ht 170.2 cm; Wt 88.5 kg
== END 2022-02-26 13:00 | disposition home or self-care (01) ==
LOC: ER 11:19
DX: S80.12XA Contusion of left lower leg, initial encounter (principal); X58.XXXA Exposure to other specified factors, initial encounter; Z88.8 Allergy status to other drugs, medicaments and biological substances; Z91.011 Allergy to milk products; Z79.899 Other long term (current) drug therapy; Z79.82 Long term (current) use of aspirin; Z87.891 Personal history of nicotine dependence
CPT/HCPCS: 93971

== ENCOUNTER 2023-02-10 15:17 | Emergency (ER) | payer OTHER ==
[~2023-02-10] VITALS: Ht 172.7 cm; Wt 88.0 kg
[2023-02-10 19:17] LABS: BASOPHILS ABSOLUTE AUTO 0.03 K/mm3 (0.00-0.23); BASOPHILS PERCENT AUTO 0 % (0-2); EOSINOPHILS ABSOLUTE AUTO 0.09 K/mm3 (0.00-0.68); EOSINOPHILS PERCENT AUTO 1 % (0-6); Hematocrit 32.8 % (33.0-51.0); Hemoglobin 10.3 g/dL (11.5-16.0); IMMATURE GRAN ABSOLUTE AUTO 0.03 K/mm3 (0.00-0.10); IMMATURE GRAN PERCENT AUTO 0 % (0-1); LYMPHOCYTES ABSOLUTE AUTO 1.51 K/mm3 (0.84-5.20); LYMPHOCYTES PERCENT AUTO 12 % (21-46); MONOCYTES ABSOLUTE AUTO 0.89 K/mm3 (0.16-1.47); MONOCYTES PERCENT AUTO 7 % (4-13); Mean Corpuscular HGB 30.7 pg (26.0-34.0); Mean Corpuscular HGB Conc 31.4 g/dL (31.5-36.5); Mean Corpuscular Volume 98 fL (80-100); NEUTROPHILS ABSOLUTE AUTO 9.84 K/mm3 (1.96-9.15); NEUTROPHILS PERCENT AUTO 80 % (41-73); Platelet Count 528 K/mm3 (150-400); RDW Coefficient Variation 13.7 % (11.7-14.2); RDW Standard Deviation 49.3 fL (35.1-46.3); Red Blood Cell Count 3.35 M/mm3 (3.80-5.20); White Blood Cell Count 12.39 K/mm3 (4.00-11.30)
[2023-02-10 19:31] LABS: Albumin, Blood 2.7 g/dL (3.4-5.0); Albumin/Globulin Ratio 0.5 (0.8-1.8); Bilirubin, Total 0.2 mg/dL (0.1-1.0); Bun/Creatinine Ratio 19.6 (12.0-20.0); Calcium, Blood 9.2 mg/dL (8.5-10.1); Creatinine, Blood 1.02 mg/dL (0.40-1.00); Globulin, Blood 5.2 g/dL (2.2-4.0); Potassium, Blood 3.8 mmol/L (3.5-5.5); Total Protein, Blood 7.9 g/dL (6.4-8.2)
[2023-02-10 19:34] LABS: International Normalized Ratio 1.13; Prothrombin Time Results 11.8 Sec (9.7-11.5)
[2023-02-11] MEDS ORDERED: Ibuprofen600 MG PO (03:20)
[2023-02-11] MEDS ORDERED: COLCHICINE0.6 MG PO (03:20)
[2023-02-11 03:30] VITALS: BP 108/78
== END 2023-02-11 03:52 | disposition home or self-care (01) ==
LOC: ER 15:17
PROVIDERS: Physician Assistant
DX: I30.9 Acute pericarditis, unspecified (principal); Z88.8 Allergy status to other drugs, medicaments and biological substances; Z88.5 Allergy status to narcotic agent; Z79.899 Other long term (current) drug therapy; Z79.82 Long term (current) use of aspirin; E78.5 Hyperlipidemia, unspecified; Z87.891 Personal history of nicotine dependence
CPT/HCPCS: 71046; 71260; 80053; 83880; 84484; 85025; 85379; 85610; 85651; 86140; 93005; 93010; 96374-59; 99285-25; A9270; J1885; Q9967

== ENCOUNTER 2023-02-12 09:15 | Emergency (ER) | payer OTHER ==
[~2023-02-12] VITALS: Ht 170.2 cm; Wt 88.0 kg
[~2023-02-12 09:15] MED LIST changes: +COLCHICINE0.6 MG PO
[2023-02-12 10:01] LABS: BASOPHILS ABSOLUTE AUTO 0.03 K/mm3 (0.00-0.23); BASOPHILS PERCENT AUTO 0 % (0-2); EOSINOPHILS ABSOLUTE AUTO 0.13 K/mm3 (0.00-0.68); EOSINOPHILS PERCENT AUTO 1 % (0-6); Hematocrit 31.8 % (33.0-51.0); Hemoglobin 9.9 g/dL (11.5-16.0); IMMATURE GRAN ABSOLUTE AUTO 0.03 K/mm3 (0.00-0.10); IMMATURE GRAN PERCENT AUTO 0 % (0-1); LYMPHOCYTES ABSOLUTE AUTO 1.58 K/mm3 (0.84-5.20); LYMPHOCYTES PERCENT AUTO 12 % (21-46); MONOCYTES PERCENT AUTO 8 % (4-13); Mean Corpuscular HGB 30.4 pg (26.0-34.0); Mean Corpuscular HGB Conc 31.1 g/dL (31.5-36.5); Mean Corpuscular Volume 98 fL (80-100); Mean Platelet Volume 10.2 fL (9.1-12.4); NEUTROPHILS ABSOLUTE AUTO 10.45 K/mm3 (1.96-9.15); NEUTROPHILS PERCENT AUTO 78 % (41-73); Platelet Count 475 K/mm3 (150-400); RDW Coefficient Variation 13.7 % (11.7-14.2); RDW Standard Deviation 48.7 fL (35.1-46.3); Red Blood Cell Count 3.26 M/mm3 (3.80-5.20); White Blood Cell Count 13.32 K/mm3 (4.00-11.30)
[2023-02-12 10:25] LABS: Albumin, Blood 2.5 g/dL (3.4-5.0); Albumin/Globulin Ratio 0.5 (0.8-1.8); Bilirubin, Total 0.2 mg/dL (0.1-1.0); Bun/Creatinine Ratio 23.9 (12.0-20.0); Calcium, Blood 8.7 mg/dL (8.5-10.1); Creatinine, Blood 0.96 mg/dL (0.40-1.00); Potassium, Blood 3.3 mmol/L (3.5-5.5); Total Protein, Blood 7.5 g/dL (6.4-8.2)
[2023-02-12 12:45] VITALS: BP 109/73
== END 2023-02-12 13:00 | disposition home or self-care (01) ==
LOC: ER 09:15
PROVIDERS: Physician Assistant
DX: I31.9 Disease of pericardium, unspecified (principal); M94.0 Chondrocostal junction syndrome [Tietze]; Z88.8 Allergy status to other drugs, medicaments and biological substances; Z88.5 Allergy status to narcotic agent; Z79.899 Other long term (current) drug therapy; Z79.82 Long term (current) use of aspirin; M19.90 Unspecified osteoarthritis, unspecified site; E78.5 Hyperlipidemia, unspecified; Z87.891 Personal history of nicotine dependence
CPT/HCPCS: 71046; 80053; 83880; 84484; 85025; 86140; 93005; 93010; 99285-25

== ENCOUNTER 2023-03-02 09:58 | Emergency (ER) | payer OTHER ==
[~2023-03-02] VITALS: Ht 170.2 cm; Wt 88.5 kg
[2023-03-02 10:24] LABS: BASOPHILS ABSOLUTE AUTO 0.04 K/mm3 (0.00-0.23); BASOPHILS PERCENT AUTO 0 % (0-2); EOSINOPHILS ABSOLUTE AUTO 0.29 K/mm3 (0.00-0.68); EOSINOPHILS PERCENT AUTO 3 % (0-6); Hematocrit 36.8 % (33.0-51.0); Hemoglobin 11.4 g/dL (11.5-16.0); IMMATURE GRAN ABSOLUTE AUTO 0.03 K/mm3 (0.00-0.10); IMMATURE GRAN PERCENT AUTO 0 % (0-1); LYMPHOCYTES ABSOLUTE AUTO 2.04 K/mm3 (0.84-5.20); LYMPHOCYTES PERCENT AUTO 20 % (21-46); MONOCYTES ABSOLUTE AUTO 0.72 K/mm3 (0.16-1.47); MONOCYTES PERCENT AUTO 7 % (4-13); Mean Corpuscular HGB 29.7 pg (26.0-34.0); Mean Corpuscular Volume 96 fL (80-100); NEUTROPHILS ABSOLUTE AUTO 7.03 K/mm3 (1.96-9.15); NEUTROPHILS PERCENT AUTO 69 % (41-73); Platelet Count 534 K/mm3 (150-400); RDW Coefficient Variation 14.6 % (11.7-14.2); RDW Standard Deviation 50.9 fL (35.1-46.3); Red Blood Cell Count 3.84 M/mm3 (3.80-5.20); White Blood Cell Count 10.15 K/mm3 (4.00-11.30)
[2023-03-02 10:52] LABS: Albumin, Blood 2.6 g/dL (3.4-5.0); Albumin/Globulin Ratio 0.5 (0.8-1.8); Bilirubin, Total 0.3 mg/dL (0.1-1.0); Bun/Creatinine Ratio 29.7 (12.0-20.0); Calcium, Blood 9.2 mg/dL (8.5-10.1); Creatinine, Blood 0.98 mg/dL (0.40-1.00); Globulin, Blood 5.5 g/dL (2.2-4.0); Potassium, Blood 3.7 mmol/L (3.5-5.5); Total Protein, Blood 8.1 g/dL (6.4-8.2)
[2023-03-02 14:40] VITALS: BP 116/79
== END 2023-03-02 14:51 | disposition home or self-care (01) ==
LOC: ER 09:58
PROVIDERS: Physician Assistant
DX: R07.9 Chest pain, unspecified (principal); I31.9 Disease of pericardium, unspecified; Z88.5 Allergy status to narcotic agent; Z88.8 Allergy status to other drugs, medicaments and biological substances; Z91.011 Allergy to milk products; Z79.899 Other long term (current) drug therapy; Z79.82 Long term (current) use of aspirin; Z87.891 Personal history of nicotine dependence
CPT/HCPCS: 71045; 80053; 83880; 84484; 85025; 93005; 93010; 96374; 99285-25; J1885

== ENCOUNTER 2023-03-20 16:57 | Emergency (ER) | payer OTHER ==
[~2023-03-20] VITALS: Ht 177.8 cm; Wt 90.7 kg
[2023-03-20 17:57] LABS: BASOPHILS ABSOLUTE AUTO 0.03 K/mm3 (0.00-0.23); BASOPHILS PERCENT AUTO 0 % (0-2); EOSINOPHILS ABSOLUTE AUTO 0.16 K/mm3 (0.00-0.68); EOSINOPHILS PERCENT AUTO 1 % (0-6); Hematocrit 36.3 % (33.0-51.0); Hemoglobin 11.3 g/dL (11.5-16.0); IMMATURE GRAN ABSOLUTE AUTO 0.03 K/mm3 (0.00-0.10); IMMATURE GRAN PERCENT AUTO 0 % (0-1); LYMPHOCYTES ABSOLUTE AUTO 2.48 K/mm3 (0.84-5.20); LYMPHOCYTES PERCENT AUTO 22 % (21-46); MONOCYTES ABSOLUTE AUTO 1.23 K/mm3 (0.16-1.47); MONOCYTES PERCENT AUTO 11 % (4-13); Mean Corpuscular HGB 29.8 pg (26.0-34.0); Mean Corpuscular HGB Conc 31.1 g/dL (31.5-36.5); Mean Corpuscular Volume 96 fL (80-100); Mean Platelet Volume 10.2 fL (9.1-12.4); NEUTROPHILS PERCENT AUTO 66 % (41-73); Platelet Count 480 K/mm3 (150-400); RDW Coefficient Variation 15.4 % (11.7-14.2); RDW Standard Deviation 53.3 fL (35.1-46.3); Red Blood Cell Count 3.79 M/mm3 (3.80-5.20); White Blood Cell Count 11.53 K/mm3 (4.00-11.30)
[2023-03-20 18:46] LABS: Alanine Aminotransfer (ALT/SGP 16 U/L (12-78); Albumin, Blood 2.7 g/dL (3.4-5.0); Albumin/Globulin Ratio 0.6 (0.8-1.8); Alk Phos 195 U/L (50-136); Anion Gap 6 mmol/L (6-16); Aspartate Aminotrans (AST/SGOT 22 U/L (12-37); Bilirubin, Total 0.3 mg/dL (0.1-1.0); Blood Urea Nitrogen 25 mg/dL (8-24); Bun/Creatinine Ratio 26.9 (12.0-20.0); C-REACTIVE PROTEIN, EXT RANGE >19.000 mg/dL (0.000-0.300); CO2, Blood 22 mmol/L (21-32); Calcium, Blood 8.8 mg/dL (8.5-10.1); Chloride, Blood 109 mmol/L (98-108); Creatinine, Blood 0.93 mg/dL (0.40-1.00); Globulin, Blood 4.9 g/dL (2.2-4.0); Glomerular Filtration Rate 69 (60-); Glucose, Blood 96 mg/dL (70-99); Sodium, Blood 137 mmol/L (136-145); Total Protein, Blood 7.6 g/dL (6.4-8.2)
[2023-03-20 22:01] LABS: Body Fluid Crystals NEG (NEGATIVE)
[2023-03-20 22:10] LABS: Automated BF RBC Count 0.023 M/mm3 (0-0)
[2023-03-20 22:31] LABS: RBC Count, Body Fluid 23000 /mm3 (0-0)
[2023-03-20 22:33] LABS: Automated BF WBC Count >200.000 K/mm3 (0-999)
[2023-03-20 23:14] LABS: Appearance, Body Fluid Cloudy (Clear); Color, Body Fluid L Yellow (None-Yellow); Total Cell Count, Body Fluid 100
[2023-03-21 05:42] VITALS: BP 103/85
== END 2023-03-21 06:04 | disposition short-term general hospital (02) ==
LOC: ER 16:57
PROVIDERS: Student in an Organized Health Care Education/Training Program
DX: M00.9 Pyogenic arthritis, unspecified (principal); Z96.653 Presence of artificial knee joint, bilateral; Z88.5 Allergy status to narcotic agent; Z88.8 Allergy status to other drugs, medicaments and biological substances; Z91.011 Allergy to milk products; Z79.899 Other long term (current) drug therapy; Z79.82 Long term (current) use of aspirin; Z87.891 Personal history of nicotine dependence
CPT/HCPCS: 20610; 73701; 80053; 85025; 85651; 86140; 89051; 89060; 96365-59; 96367-59; 96375; 99285-25; J0692; J2270; J3370; J7030; Q9967

== ENCOUNTER 2023-03-26 00:57 | Day surgery (SDC) | payer OTHER ==
[~2023-03-26 00:57] MED LIST changes: -CHOLECALCIFEROL PO; +VITAMIN D5000 UNIT PO
[2023-03-26 13:40] VITALS: BP 127/74
[2023-03-26] MEDS ORDERED: PSEU120ER PO (13:53)
[2023-03-26] MEDS ORDERED: BALSALAZIDE DI750 M1 PO (13:56)
[2023-03-26] MEDS ORDERED: HYDR1TAB94 PO (13:57)
== END 2023-03-26 13:58 | disposition home or self-care (01) ==
LOC: ATC 00:57
DX: T84.54XA Infection and inflammatory reaction due to internal left knee prosthesis, initial encounter (principal); M00.9 Pyogenic arthritis, unspecified; Y79.2 Prosthetic and other implants, materials and accessory orthopedic devices associated with adverse incidents; Z88.5 Allergy status to narcotic agent; Z88.8 Allergy status to other drugs, medicaments and biological substances; Z79.82 Long term (current) use of aspirin; Z79.899 Other long term (current) drug therapy
CPT/HCPCS: 96365; J0878

== ENCOUNTER 2023-03-27 03:03 | Day surgery (SDC) | payer OTHER ==
[~2023-03-27 03:03] MED LIST changes: +BALSALAZIDE DI750 M1 PO; +PSEU120ER PO
[2023-03-27 13:34] VITALS: BP 117/74
== END 2023-03-27 14:01 | disposition home or self-care (01) ==
LOC: ATC 03:03
DX: T84.54XA Infection and inflammatory reaction due to internal left knee prosthesis, initial encounter (principal); M00.9 Pyogenic arthritis, unspecified; M81.0 Age-related osteoporosis without current pathological fracture
CPT/HCPCS: 96365; J0878

== ENCOUNTER 2023-03-28 02:32 | Day surgery (SDC) | payer OTHER ==
[2023-03-28 13:39] VITALS: BP 106/69
== END 2023-03-28 14:05 | disposition home or self-care (01) ==
LOC: ATC 02:32
DX: T84.54XA Infection and inflammatory reaction due to internal left knee prosthesis, initial encounter (principal); M00.9 Pyogenic arthritis, unspecified; M81.0 Age-related osteoporosis without current pathological fracture
CPT/HCPCS: 96365; J0878

== ENCOUNTER 2023-03-29 02:09 | Day surgery (SDC) | payer OTHER ==
[2023-03-29 08:28] VITALS: BP 116/66
== END 2023-03-29 08:55 | disposition home or self-care (01) ==
LOC: ATC 02:09
DX: T84.54XA Infection and inflammatory reaction due to internal left knee prosthesis, initial encounter (principal); M81.0 Age-related osteoporosis without current pathological fracture
CPT/HCPCS: 96365; J0878

== ENCOUNTER 2023-03-30 04:10 | Day surgery (SDC) | payer OTHER ==
[2023-03-30 14:04] VITALS: BP 110/60
[2023-03-30 14:18] LABS: BASOPHILS ABSOLUTE AUTO 0.06 K/mm3 (0.00-0.23); BASOPHILS PERCENT AUTO 1 % (0-2); EOSINOPHILS ABSOLUTE AUTO 1.34 K/mm3 (0.00-0.68); EOSINOPHILS PERCENT AUTO 13 % (0-6); Hematocrit 34.8 % (33.0-51.0); Hemoglobin 10.4 g/dL (11.5-16.0); IMMATURE GRAN ABSOLUTE AUTO 0.05 K/mm3 (0.00-0.10); IMMATURE GRAN PERCENT AUTO 1 % (0-1); LYMPHOCYTES ABSOLUTE AUTO 2.14 K/mm3 (0.84-5.20); LYMPHOCYTES PERCENT AUTO 20 % (21-46); MONOCYTES ABSOLUTE AUTO 0.61 K/mm3 (0.16-1.47); MONOCYTES PERCENT AUTO 6 % (4-13); Mean Corpuscular HGB 29.7 pg (26.0-34.0); Mean Corpuscular HGB Conc 29.9 g/dL (31.5-36.5); Mean Corpuscular Volume 99 fL (80-100); Mean Platelet Volume 10.1 fL (9.1-12.4); NEUTROPHILS ABSOLUTE AUTO 6.43 K/mm3 (1.96-9.15); NEUTROPHILS PERCENT AUTO 61 % (41-73); Platelet Count 659 K/mm3 (150-400); RDW Coefficient Variation 16.3 % (11.7-14.2); RDW Standard Deviation 59.1 fL (35.1-46.3); White Blood Cell Count 10.63 K/mm3 (4.00-11.30)
[2023-03-30 14:34] LABS: C-REACTIVE PROTEIN, EXT RANGE 0.676 mg/dL (0.000-0.300)
[2023-03-30 14:36] LABS: Albumin, Blood 3.1 g/dL (3.4-5.0); Albumin/Globulin Ratio 0.7 (0.8-1.8); Bilirubin, Total 0.2 mg/dL (0.1-1.0); Bun/Creatinine Ratio 22.1 (12.0-20.0); Calcium, Blood 9.2 mg/dL (8.5-10.1); Creatinine, Blood 0.9 mg/dL (0.40-1.00); Globulin, Blood 4.6 g/dL (2.2-4.0); Potassium, Blood 3.7 mmol/L (3.5-5.5); Total Protein, Blood 7.7 g/dL (6.4-8.2)
[2023-03-31] MEDS ORDERED: POTCHL20ER PO (13:41)
== END 2023-03-30 16:00 | disposition home or self-care (01) ==
LOC: ATC 04:10
PROVIDERS: Internal Medicine Infectious Disease
DX: T84.54XA Infection and inflammatory reaction due to internal left knee prosthesis, initial encounter (principal); M81.0 Age-related osteoporosis without current pathological fracture
CPT/HCPCS: 80053; 82550; 85025; 85651; 86140; 96365; J0878

== ENCOUNTER 2023-03-31 09:20 | Day surgery (SDC) | payer OTHER ==
[2023-03-31 13:39] VITALS: BP 115/67
[2023-03-31] MEDS ORDERED: POTCHL20ER PO (13:41)
== END 2023-03-31 14:05 | disposition home or self-care (01) ==
LOC: ATC 09:20
DX: T84.54XA Infection and inflammatory reaction due to internal left knee prosthesis, initial encounter (principal); M19.90 Unspecified osteoarthritis, unspecified site; M81.0 Age-related osteoporosis without current pathological fracture; Z88.8 Allergy status to other drugs, medicaments and biological substances; Z79.899 Other long term (current) drug therapy
CPT/HCPCS: 96365; J0878

== ENCOUNTER 2023-04-01 08:58 | Day surgery (SDC) | payer OTHER ==
[2023-04-01 13:55] VITALS: BP 120/59
== END 2023-04-01 14:09 | disposition home or self-care (01) ==
LOC: ATC 08:58
DX: T84.54XA Infection and inflammatory reaction due to internal left knee prosthesis, initial encounter (principal); M81.0 Age-related osteoporosis without current pathological fracture; Z88.5 Allergy status to narcotic agent; Z79.899 Other long term (current) drug therapy; Y83.8 Other surgical procedures as the cause of abnormal reaction of the patient, or of later complication, without mention of misadventure at the time of the procedure
CPT/HCPCS: 96365; J0878

== ENCOUNTER 2023-04-02 02:33 | Day surgery (SDC) | payer OTHER ==
[2023-04-02 13:43] VITALS: BP 132/72
== END 2023-04-02 14:11 | disposition home or self-care (01) ==
LOC: ATC 02:33
DX: T84.54XA Infection and inflammatory reaction due to internal left knee prosthesis, initial encounter (principal); M00.9 Pyogenic arthritis, unspecified; Z88.5 Allergy status to narcotic agent; Z88.8 Allergy status to other drugs, medicaments and biological substances; Z79.82 Long term (current) use of aspirin; Z79.899 Other long term (current) drug therapy
CPT/HCPCS: 96365; J0878

== ENCOUNTER 2023-04-03 04:00 | Day surgery (SDC) | payer OTHER ==
[2023-04-03 13:44] VITALS: BP 129/73
== END 2023-04-03 14:01 | disposition home or self-care (01) ==
LOC: ATC 04:00
DX: T84.54XA Infection and inflammatory reaction due to internal left knee prosthesis, initial encounter (principal); Z88.5 Allergy status to narcotic agent; Z87.891 Personal history of nicotine dependence
CPT/HCPCS: 96374; J0878

== ENCOUNTER 2023-04-04 01:32 | Day surgery (SDC) | payer OTHER ==
[2023-04-04 13:32] VITALS: BP 115/61
== END 2023-04-04 13:55 | disposition home or self-care (01) ==
LOC: ATC 01:32
DX: T84.54XA Infection and inflammatory reaction due to internal left knee prosthesis, initial encounter (principal); M81.0 Age-related osteoporosis without current pathological fracture; Z88.5 Allergy status to narcotic agent; M19.90 Unspecified osteoarthritis, unspecified site
CPT/HCPCS: 96365; J0878

== ENCOUNTER 2023-04-05 02:40 | Day surgery (SDC) | payer OTHER ==
[2023-04-05 13:24] VITALS: BP 118/61
== END 2023-04-05 13:48 | disposition home or self-care (01) ==
LOC: ATC 02:40
DX: T84.54XA Infection and inflammatory reaction due to internal left knee prosthesis, initial encounter (principal); M81.0 Age-related osteoporosis without current pathological fracture; M19.90 Unspecified osteoarthritis, unspecified site; Z79.899 Other long term (current) drug therapy; Y83.8 Other surgical procedures as the cause of abnormal reaction of the patient, or of later complication, without mention of misadventure at the time of the procedure
CPT/HCPCS: 96365; J0878

== ENCOUNTER 2023-04-06 00:32 | Day surgery (SDC) | payer OTHER ==
[2023-04-06 13:27] VITALS: BP 116/67
[2023-04-06 13:49] LABS: BASOPHILS ABSOLUTE AUTO 0.08 K/mm3 (0.00-0.23); BASOPHILS PERCENT AUTO 1 % (0-2); EOSINOPHILS ABSOLUTE AUTO 1.35 K/mm3 (0.00-0.68); EOSINOPHILS PERCENT AUTO 13 % (0-6); Hematocrit 33.5 % (33.0-51.0); Hemoglobin 10.5 g/dL (11.5-16.0); IMMATURE GRAN ABSOLUTE AUTO 0.03 K/mm3 (0.00-0.10); IMMATURE GRAN PERCENT AUTO 0 % (0-1); LYMPHOCYTES ABSOLUTE AUTO 2.57 K/mm3 (0.84-5.20); LYMPHOCYTES PERCENT AUTO 25 % (21-46); MONOCYTES ABSOLUTE AUTO 0.63 K/mm3 (0.16-1.47); MONOCYTES PERCENT AUTO 6 % (4-13); Mean Corpuscular HGB 30.5 pg (26.0-34.0); Mean Corpuscular HGB Conc 31.3 g/dL (31.5-36.5); Mean Corpuscular Volume 97 fL (80-100); Mean Platelet Volume 10.1 fL (9.1-12.4); NEUTROPHILS ABSOLUTE AUTO 5.63 K/mm3 (1.96-9.15); NEUTROPHILS PERCENT AUTO 55 % (41-73); Platelet Count 614 K/mm3 (150-400); RDW Standard Deviation 60.1 fL (35.1-46.3); Red Blood Cell Count 3.44 M/mm3 (3.80-5.20); White Blood Cell Count 10.29 K/mm3 (4.00-11.30)
[2023-04-06 14:17] LABS: Albumin, Blood 2.8 g/dL (3.4-5.0); Albumin/Globulin Ratio 0.6 (0.8-1.8); Bilirubin, Total 0.3 mg/dL (0.1-1.0); Bun/Creatinine Ratio 27.6 (12.0-20.0); C-REACTIVE PROTEIN, EXT RANGE 1.69 mg/dL (0.000-0.300); Creatinine, Blood 0.76 mg/dL (0.40-1.00); Globulin, Blood 4.7 g/dL (2.2-4.0); Potassium, Blood 4.4 mmol/L (3.5-5.5); Total Protein, Blood 7.5 g/dL (6.4-8.2)
--- NOTE | 2023-04-06 15:54 | NUR ---
LAB RESULTS FROM TODAY FAXED TO DR. ROSSI'S OFFICE.
[2023-04-07] MEDS ORDERED: CUBICIN RF500 M1 IV (13:38)
== END 2023-04-06 13:51 | disposition home or self-care (01) ==
LOC: ATC 00:32
PROVIDERS: Internal Medicine Infectious Disease
DX: T84.54XA Infection and inflammatory reaction due to internal left knee prosthesis, initial encounter (principal); M81.0 Age-related osteoporosis without current pathological fracture
CPT/HCPCS: 80053; 82550; 85025; 85651; 86140; 96365; J0878

== ENCOUNTER 2023-04-07 00:45 | Day surgery (SDC) | payer OTHER ==
[2023-04-07] MEDS ORDERED: CUBICIN RF500 M1 IV (13:38)
[2023-04-07 13:39] VITALS: BP 120/63
== END 2023-04-07 14:05 | disposition home or self-care (01) ==
LOC: ATC 00:45
DX: T84.54XA Infection and inflammatory reaction due to internal left knee prosthesis, initial encounter (principal); M81.0 Age-related osteoporosis without current pathological fracture; M19.90 Unspecified osteoarthritis, unspecified site; Z88.8 Allergy status to other drugs, medicaments and biological substances; Z79.899 Other long term (current) drug therapy; Y83.8 Other surgical procedures as the cause of abnormal reaction of the patient, or of later complication, without mention of misadventure at the time of the procedure
CPT/HCPCS: 96365; J0878

== ENCOUNTER 2023-04-08 00:55 | Day surgery (SDC) | payer OTHER ==
[~2023-04-08 00:55] MED LIST changes: +CUBICIN RF500 M1 IV
[2023-04-08 13:33] VITALS: BP 121/62
== END 2023-04-08 14:04 | disposition home or self-care (01) ==
LOC: ATC 00:55
DX: T84.54XA Infection and inflammatory reaction due to internal left knee prosthesis, initial encounter (principal); M81.0 Age-related osteoporosis without current pathological fracture; Y83.8 Other surgical procedures as the cause of abnormal reaction of the patient, or of later complication, without mention of misadventure at the time of the procedure
CPT/HCPCS: 96365; J0878

== ENCOUNTER 2023-04-09 04:10 | Day surgery (SDC) | payer OTHER ==
[2023-04-09 13:41] VITALS: BP 131/67
== END 2023-04-09 14:05 | disposition home or self-care (01) ==
LOC: ATC 04:10
DX: T84.54XA Infection and inflammatory reaction due to internal left knee prosthesis, initial encounter (principal); M00.9 Pyogenic arthritis, unspecified; Z88.5 Allergy status to narcotic agent; Z88.8 Allergy status to other drugs, medicaments and biological substances; Z79.899 Other long term (current) drug therapy
CPT/HCPCS: 96365; J0878

== ENCOUNTER 2023-04-10 03:13 | Day surgery (SDC) | payer OTHER ==
[2023-04-10 13:27] VITALS: BP 129/95
== END 2023-04-10 13:49 | disposition home or self-care (01) ==
LOC: ATC 03:13
DX: T84.54XA Infection and inflammatory reaction due to internal left knee prosthesis, initial encounter (principal); Y79.2 Prosthetic and other implants, materials and accessory orthopedic devices associated with adverse incidents
CPT/HCPCS: 96365; J0878

== ENCOUNTER 2023-04-11 04:31 | Day surgery (SDC) | payer OTHER ==
[2023-04-11 10:27] VITALS: BP 109/61
== END 2023-04-11 10:45 | disposition home or self-care (01) ==
LOC: ATC 04:31
DX: T84.54XA Infection and inflammatory reaction due to internal left knee prosthesis, initial encounter (principal); M00.9 Pyogenic arthritis, unspecified; Z87.891 Personal history of nicotine dependence; Z88.5 Allergy status to narcotic agent; Z88.6 Allergy status to analgesic agent; Z79.899 Other long term (current) drug therapy
CPT/HCPCS: 96365; J0878

== ENCOUNTER 2023-04-12 04:47 | Day surgery (SDC) | payer OTHER ==
[2023-04-12 08:00] VITALS: BP 108/50
== END 2023-04-12 08:35 | disposition home or self-care (01) ==
LOC: ATC 04:47
DX: T84.54XA Infection and inflammatory reaction due to internal left knee prosthesis, initial encounter (principal); M00.9 Pyogenic arthritis, unspecified; Z87.891 Personal history of nicotine dependence; Z88.5 Allergy status to narcotic agent; Z88.8 Allergy status to other drugs, medicaments and biological substances; Z79.82 Long term (current) use of aspirin; Z79.899 Other long term (current) drug therapy
CPT/HCPCS: 96374; J0878

== ENCOUNTER 2023-04-13 01:09 | Day surgery (SDC) | payer OTHER ==
[2023-04-13 10:21] LABS: BASOPHILS ABSOLUTE AUTO 0.06 K/mm3 (0.00-0.23); BASOPHILS PERCENT AUTO 1 % (0-2); EOSINOPHILS ABSOLUTE AUTO 0.81 K/mm3 (0.00-0.68); EOSINOPHILS PERCENT AUTO 10 % (0-6); Hematocrit 34.6 % (33.0-51.0); Hemoglobin 10.6 g/dL (11.5-16.0); IMMATURE GRAN ABSOLUTE AUTO 0.01 K/mm3 (0.00-0.10); IMMATURE GRAN PERCENT AUTO 0 % (0-1); LYMPHOCYTES ABSOLUTE AUTO 2.41 K/mm3 (0.84-5.20); LYMPHOCYTES PERCENT AUTO 30 % (21-46); MONOCYTES ABSOLUTE AUTO 0.48 K/mm3 (0.16-1.47); MONOCYTES PERCENT AUTO 6 % (4-13); Mean Corpuscular HGB 29.4 pg (26.0-34.0); Mean Corpuscular HGB Conc 30.6 g/dL (31.5-36.5); Mean Corpuscular Volume 96 fL (80-100); Mean Platelet Volume 10.3 fL (9.1-12.4); NEUTROPHILS ABSOLUTE AUTO 4.15 K/mm3 (1.96-9.15); NEUTROPHILS PERCENT AUTO 52 % (41-73); Platelet Count 553 K/mm3 (150-400); RDW Coefficient Variation 15.6 % (11.7-14.2); RDW Standard Deviation 54.5 fL (35.1-46.3); White Blood Cell Count 7.92 K/mm3 (4.00-11.30)
[2023-04-13 10:44] LABS: Albumin, Blood 2.9 g/dL (3.4-5.0); Albumin/Globulin Ratio 0.6 (0.8-1.8); Bilirubin, Total 0.2 mg/dL (0.1-1.0); Bun/Creatinine Ratio 33.7 (12.0-20.0); C-REACTIVE PROTEIN, EXT RANGE 1.43 mg/dL (0.000-0.300); Creatinine, Blood 0.95 mg/dL (0.40-1.00); Globulin, Blood 4.5 g/dL (2.2-4.0); Potassium, Blood 4.1 mmol/L (3.5-5.5); Total Protein, Blood 7.4 g/dL (6.4-8.2)
--- NOTE | 2023-04-13 11:03 | NUR ---
LAB RESULTS FROM TODAY FAXED TO DR. ROSSI'S OFFICE.
== END 2023-04-13 10:33 | disposition home or self-care (01) ==
LOC: ATC 01:09
PROVIDERS: Internal Medicine Infectious Disease
DX: T84.54XA Infection and inflammatory reaction due to internal left knee prosthesis, initial encounter (principal); M00.9 Pyogenic arthritis, unspecified; Z88.5 Allergy status to narcotic agent; Z88.8 Allergy status to other drugs, medicaments and biological substances; Z79.82 Long term (current) use of aspirin; Z79.899 Other long term (current) drug therapy
CPT/HCPCS: 80053; 82550; 85025; 85651; 86140; 96365; J0878

== ENCOUNTER 2023-04-14 01:41 | Day surgery (SDC) | payer OTHER ==
[2023-04-14 13:41] VITALS: BP 127/67
== END 2023-04-14 14:12 | disposition home or self-care (01) ==
LOC: ATC 01:41
DX: T84.54XA Infection and inflammatory reaction due to internal left knee prosthesis, initial encounter (principal); Y79.2 Prosthetic and other implants, materials and accessory orthopedic devices associated with adverse incidents; Z88.5 Allergy status to narcotic agent
CPT/HCPCS: 96365; J0878

== ENCOUNTER 2023-04-15 04:45 | Day surgery (SDC) | payer OTHER ==
[2023-04-15 13:48] VITALS: BP 114/68
== END 2023-04-15 14:10 | disposition home or self-care (01) ==
LOC: ATC 04:45
DX: T84.54XA Infection and inflammatory reaction due to internal left knee prosthesis, initial encounter (principal); M00.9 Pyogenic arthritis, unspecified; Y79.2 Prosthetic and other implants, materials and accessory orthopedic devices associated with adverse incidents
CPT/HCPCS: 96365; J0878

== ENCOUNTER 2023-04-16 01:41 | Day surgery (SDC) | payer OTHER ==
[2023-04-16 13:35] VITALS: BP 123/63
== END 2023-04-16 14:03 | disposition home or self-care (01) ==
LOC: ATC 01:41
DX: T84.54XA Infection and inflammatory reaction due to internal left knee prosthesis, initial encounter (principal); M81.0 Age-related osteoporosis without current pathological fracture; Z87.891 Personal history of nicotine dependence; R74.8 Abnormal levels of other serum enzymes
CPT/HCPCS: 36415; 80069; 81050; 82306; 82340; 82570; 82652; 83735; 83970; 96365; J0878

== ENCOUNTER → 2023-04-16 | Outpatient (CLI) | payer OTHER ==
[2023-04-16 13:28] LABS: Creatinine Urine 30.9 mg/dL (27.00-270.00)
[2023-04-16 13:56] LABS: Calcium, Urine <5.0 mg/dL (< 17.5); Calcium, Urine Calculation Unable to Calculate mg/24hrs (42.0-353.0)
== END ==
LOC: LAB SHORT 09:54 → LAB 09:54
PROVIDERS: Internal Medicine Endocrinology, Diabetes & Metabolism
DX: R74.8 Abnormal levels of other serum enzymes (principal)
CPT/HCPCS: 81050; 82340; 82570

== ENCOUNTER 2023-04-17 00:56 | Day surgery (SDC) | payer OTHER ==
[2023-04-17 13:35] VITALS: BP 140/69
== END 2023-04-17 13:53 | disposition home or self-care (01) ==
LOC: ATC 00:56
DX: T84.54XA Infection and inflammatory reaction due to internal left knee prosthesis, initial encounter (principal); M81.0 Age-related osteoporosis without current pathological fracture; Z88.8 Allergy status to other drugs, medicaments and biological substances
CPT/HCPCS: 96365; J0878

== ENCOUNTER 2023-04-18 03:22 | Day surgery (SDC) | payer OTHER ==
[2023-04-18 13:21] VITALS: BP 118/59
== END 2023-04-18 23:04 | disposition home or self-care (01) ==
LOC: ATC 03:22
DX: T84.54XA Infection and inflammatory reaction due to internal left knee prosthesis, initial encounter (principal); M81.0 Age-related osteoporosis without current pathological fracture; Z88.8 Allergy status to other drugs, medicaments and biological substances; X58.XXXA Exposure to other specified factors, initial encounter
CPT/HCPCS: 96365; J0878

== ENCOUNTER 2023-04-19 04:53 | Day surgery (SDC) | payer OTHER ==
[2023-04-19 13:26] VITALS: BP 119/58
== END 2023-04-19 13:45 | disposition home or self-care (01) ==
LOC: ATC 04:53
DX: T84.54XA Infection and inflammatory reaction due to internal left knee prosthesis, initial encounter (principal); M81.0 Age-related osteoporosis without current pathological fracture; Z88.8 Allergy status to other drugs, medicaments and biological substances; Z79.899 Other long term (current) drug therapy; X58.XXXA Exposure to other specified factors, initial encounter
CPT/HCPCS: 96365; J0878

== ENCOUNTER 2023-04-20 13:30 | Day surgery (SDC) | payer OTHER ==
[2023-04-20 13:59] VITALS: BP 116/57
[2023-04-20 14:13] LABS: BASOPHILS ABSOLUTE AUTO 0.06 K/mm3 (0.00-0.23); BASOPHILS PERCENT AUTO 1 % (0-2); EOSINOPHILS ABSOLUTE AUTO 0.95 K/mm3 (0.00-0.68); EOSINOPHILS PERCENT AUTO 14 % (0-6); Hematocrit 35.9 % (33.0-51.0); Hemoglobin 10.9 g/dL (11.5-16.0); IMMATURE GRAN ABSOLUTE AUTO 0.01 K/mm3 (0.00-0.10); IMMATURE GRAN PERCENT AUTO 0 % (0-1); LYMPHOCYTES ABSOLUTE AUTO 2.49 K/mm3 (0.84-5.20); LYMPHOCYTES PERCENT AUTO 36 % (21-46); MONOCYTES ABSOLUTE AUTO 0.49 K/mm3 (0.16-1.47); MONOCYTES PERCENT AUTO 7 % (4-13); Mean Corpuscular HGB 29.8 pg (26.0-34.0); Mean Corpuscular HGB Conc 30.4 g/dL (31.5-36.5); Mean Corpuscular Volume 98 fL (80-100); Mean Platelet Volume 10.1 fL (9.1-12.4); NEUTROPHILS ABSOLUTE AUTO 2.98 K/mm3 (1.96-9.15); NEUTROPHILS PERCENT AUTO 43 % (41-73); Platelet Count 505 K/mm3 (150-400); RDW Coefficient Variation 16.1 % (11.7-14.2); RDW Standard Deviation 58.5 fL (35.1-46.3); Red Blood Cell Count 3.66 M/mm3 (3.80-5.20); White Blood Cell Count 6.98 K/mm3 (4.00-11.30)
[2023-04-20 14:28] LABS: Alanine Aminotransfer (ALT/SGP 22 U/L (12-78); Albumin/Globulin Ratio 0.7 (0.8-1.8); Alk Phos 217 U/L (50-136); Anion Gap 5 mmol/L (6-16); Aspartate Aminotrans (AST/SGOT 19 U/L (12-37); Bilirubin, Total 0.1 mg/dL (0.1-1.0); Blood Urea Nitrogen 30 mg/dL (8-24); C-REACTIVE PROTEIN, EXT RANGE <0.290 mg/dL (0.000-0.300); CO2, Blood 21 mmol/L (21-32); Calcium, Blood 8.7 mg/dL (8.5-10.1); Chloride, Blood 118 mmol/L (98-108); Creatinine, Blood 0.86 mg/dL (0.40-1.00); Globulin, Blood 4.4 g/dL (2.2-4.0); Glomerular Filtration Rate 75 (60-); Glucose, Blood 89 mg/dL (70-99); Potassium, Blood 4.3 mmol/L (3.5-5.5); Sodium, Blood 144 mmol/L (136-145); Total Protein, Blood 7.4 g/dL (6.4-8.2)
[2023-04-23 20:54] LABS: CK TOTAL 79 U/L (26-192); CK-BB 0 % (0-0); CK-MACRO TYPE I 0 % (0-0); CK-MACRO TYPE II 0 % (0-0); CK-MB 0 % (0-4); CK-MM 100 % (96-100)
== END 2023-04-20 14:15 | disposition home or self-care (01) ==
LOC: ATC 13:30
PROVIDERS: Internal Medicine Infectious Disease
DX: T84.54XA Infection and inflammatory reaction due to internal left knee prosthesis, initial encounter (principal); M81.0 Age-related osteoporosis without current pathological fracture; Z88.8 Allergy status to other drugs, medicaments and biological substances; X58.XXXA Exposure to other specified factors, initial encounter
CPT/HCPCS: 80053; 82550; 82552; 85025; 85651; 86140; 96360

== ENCOUNTER 2023-04-21 02:52 | Day surgery (SDC) | payer OTHER ==
[2023-04-21 10:40] VITALS: BP 132/64
== END 2023-04-21 11:05 | disposition home or self-care (01) ==
LOC: ATC 02:52
DX: T84.54XA Infection and inflammatory reaction due to internal left knee prosthesis, initial encounter (principal); M81.0 Age-related osteoporosis without current pathological fracture; X58.XXXA Exposure to other specified factors, initial encounter
CPT/HCPCS: 96365; J0878

== ENCOUNTER 2023-04-22 03:37 | Day surgery (SDC) | payer OTHER ==
[2023-04-22 08:48] VITALS: BP 128/61
== END 2023-04-22 09:08 | disposition home or self-care (01) ==
LOC: ATC 03:37
DX: T84.54XA Infection and inflammatory reaction due to internal left knee prosthesis, initial encounter (principal); M00.9 Pyogenic arthritis, unspecified; Y79.3 Surgical instruments, materials and orthopedic devices (including sutures) associated with adverse incidents; Z88.5 Allergy status to narcotic agent; Z88.8 Allergy status to other drugs, medicaments and biological substances; Z79.899 Other long term (current) drug therapy; Z79.82 Long term (current) use of aspirin
CPT/HCPCS: 96365; J0878

== ENCOUNTER 2023-04-23 05:18 | Day surgery (SDC) | payer OTHER ==
[2023-04-23 13:40] VITALS: BP 129/62
== END 2023-04-23 14:06 | disposition home or self-care (01) ==
LOC: ATC 05:18
DX: T84.54XA Infection and inflammatory reaction due to internal left knee prosthesis, initial encounter (principal); M00.9 Pyogenic arthritis, unspecified; Y79.3 Surgical instruments, materials and orthopedic devices (including sutures) associated with adverse incidents; Z87.891 Personal history of nicotine dependence; Z88.5 Allergy status to narcotic agent; Z79.82 Long term (current) use of aspirin; Z88.8 Allergy status to other drugs, medicaments and biological substances; Z79.899 Other long term (current) drug therapy
CPT/HCPCS: 96365; J0878

== ENCOUNTER 2023-04-24 03:13 | Day surgery (SDC) | payer OTHER ==
[2023-04-24 13:38] VITALS: BP 129/72
== END 2023-04-24 13:55 | disposition home or self-care (01) ==
LOC: ATC 03:13
DX: T84.54XA Infection and inflammatory reaction due to internal left knee prosthesis, initial encounter (principal); M81.0 Age-related osteoporosis without current pathological fracture; Z88.8 Allergy status to other drugs, medicaments and biological substances; X58.XXXA Exposure to other specified factors, initial encounter
CPT/HCPCS: 96365; J0878

== ENCOUNTER 2023-04-25 03:04 | Day surgery (SDC) | payer OTHER ==
[2023-04-25 13:20] VITALS: BP 151/62
== END 2023-04-25 13:55 | disposition home or self-care (01) ==
LOC: ATC 03:04
DX: T84.54XA Infection and inflammatory reaction due to internal left knee prosthesis, initial encounter (principal); M81.0 Age-related osteoporosis without current pathological fracture; Z79.899 Other long term (current) drug therapy; X58.XXXA Exposure to other specified factors, initial encounter
CPT/HCPCS: 96365; J0878

== ENCOUNTER 2023-04-26 05:09 | Day surgery (SDC) | payer OTHER ==
[2023-04-26 13:40] VITALS: BP 127/68
== END 2023-04-26 14:07 | disposition home or self-care (01) ==
LOC: ATC 05:09
DX: T84.54XA Infection and inflammatory reaction due to internal left knee prosthesis, initial encounter (principal); M81.0 Age-related osteoporosis without current pathological fracture; Z88.8 Allergy status to other drugs, medicaments and biological substances; X58.XXXA Exposure to other specified factors, initial encounter
CPT/HCPCS: 96365; J0878

== ENCOUNTER 2023-04-27 04:24 | Day surgery (SDC) | payer OTHER ==
[2023-04-27 14:15] LABS: BASOPHILS ABSOLUTE AUTO 0.05 K/mm3 (0.00-0.23); BASOPHILS PERCENT AUTO 1 % (0-2); EOSINOPHILS ABSOLUTE AUTO 0.62 K/mm3 (0.00-0.68); EOSINOPHILS PERCENT AUTO 10 % (0-6); Hematocrit 34.7 % (33.0-51.0); Hemoglobin 10.7 g/dL (11.5-16.0); IMMATURE GRAN ABSOLUTE AUTO 0.02 K/mm3 (0.00-0.10); IMMATURE GRAN PERCENT AUTO 0 % (0-1); LYMPHOCYTES ABSOLUTE AUTO 2.08 K/mm3 (0.84-5.20); LYMPHOCYTES PERCENT AUTO 32 % (21-46); MONOCYTES ABSOLUTE AUTO 0.49 K/mm3 (0.16-1.47); MONOCYTES PERCENT AUTO 8 % (4-13); Mean Corpuscular HGB 30.5 pg (26.0-34.0); Mean Corpuscular HGB Conc 30.8 g/dL (31.5-36.5); Mean Corpuscular Volume 99 fL (80-100); Mean Platelet Volume 10.7 fL (9.1-12.4); NEUTROPHILS ABSOLUTE AUTO 3.16 K/mm3 (1.96-9.15); NEUTROPHILS PERCENT AUTO 49 % (41-73); Platelet Count 402 K/mm3 (150-400); RDW Coefficient Variation 16.7 % (11.7-14.2); RDW Standard Deviation 60.8 fL (35.1-46.3); Red Blood Cell Count 3.51 M/mm3 (3.80-5.20); White Blood Cell Count 6.42 K/mm3 (4.00-11.30)
[2023-04-27 14:20] VITALS: BP 117/64
[2023-04-27 14:36] LABS: C-REACTIVE PROTEIN, EXT RANGE <0.290 mg/dL (0.000-0.300)
[2023-04-27 14:40] LABS: Alanine Aminotransfer (ALT/SGP 21 U/L (12-78); Albumin, Blood 3.3 g/dL (3.4-5.0); Albumin/Globulin Ratio 0.8 (0.8-1.8); Alk Phos 201 U/L (50-136); Anion Gap 4 mmol/L (6-16); Aspartate Aminotrans (AST/SGOT 25 U/L (12-37); Bilirubin, Total 0.3 mg/dL (0.1-1.0); Blood Urea Nitrogen 27 mg/dL (8-24); Bun/Creatinine Ratio 32.1 (12.0-20.0); CO2, Blood 23 mmol/L (21-32); Calcium, Blood 8.9 mg/dL (8.5-10.1); Chloride, Blood 115 mmol/L (98-108); Creatinine, Blood 0.84 mg/dL (0.40-1.00); Globulin, Blood 3.9 g/dL (2.2-4.0); Glomerular Filtration Rate 78 (60-); Glucose, Blood 106 mg/dL (70-99); Sodium, Blood 142 mmol/L (136-145); Total Protein, Blood 7.2 g/dL (6.4-8.2)
== END 2023-04-27 14:27 | disposition home or self-care (01) ==
LOC: ATC 04:24
PROVIDERS: Internal Medicine Infectious Disease
DX: T84.54XA Infection and inflammatory reaction due to internal left knee prosthesis, initial encounter (principal); M81.0 Age-related osteoporosis without current pathological fracture; Z88.8 Allergy status to other drugs, medicaments and biological substances; X58.XXXA Exposure to other specified factors, initial encounter
CPT/HCPCS: 80053; 82550; 85025; 85651; 86140; 96365; J0878

== ENCOUNTER 2023-04-28 00:39 | Day surgery (SDC) | payer OTHER ==
[2023-04-28 13:39] VITALS: BP 125/72
== END 2023-04-28 14:10 | disposition home or self-care (01) ==
LOC: ATC 00:39
DX: T84.54XA Infection and inflammatory reaction due to internal left knee prosthesis, initial encounter (principal); M81.0 Age-related osteoporosis without current pathological fracture; X58.XXXA Exposure to other specified factors, initial encounter
CPT/HCPCS: 96365; J0878

== ENCOUNTER 2023-04-29 01:09 | Day surgery (SDC) | payer OTHER ==
[2023-04-29 13:43] VITALS: BP 108/69
== END 2023-04-29 14:11 | disposition home or self-care (01) ==
LOC: ATC 01:09
DX: T84.54XA Infection and inflammatory reaction due to internal left knee prosthesis, initial encounter (principal); M81.0 Age-related osteoporosis without current pathological fracture; Z88.8 Allergy status to other drugs, medicaments and biological substances; X58.XXXA Exposure to other specified factors, initial encounter
CPT/HCPCS: 96365; J0878

== ENCOUNTER 2023-04-30 01:06 | Day surgery (SDC) | payer OTHER ==
[2023-04-30 15:42] VITALS: BP 122/91
== END 2023-04-30 16:00 | disposition home or self-care (01) ==
LOC: ATC 01:06
DX: T84.54XA Infection and inflammatory reaction due to internal left knee prosthesis, initial encounter (principal); M00.9 Pyogenic arthritis, unspecified; Y79.3 Surgical instruments, materials and orthopedic devices (including sutures) associated with adverse incidents; Z87.891 Personal history of nicotine dependence; Z88.5 Allergy status to narcotic agent; Z88.8 Allergy status to other drugs, medicaments and biological substances; Z79.899 Other long term (current) drug therapy
CPT/HCPCS: 96365; J0878

== ENCOUNTER 2023-05-01 02:11 | Day surgery (SDC) | payer OTHER ==
[2023-05-01 13:32] VITALS: BP 137/69
[2023-05-01 13:35] VITALS: BP 137/69
== END 2023-05-01 13:50 | disposition home or self-care (01) ==
LOC: ATC 02:11
DX: T84.54XA Infection and inflammatory reaction due to internal left knee prosthesis, initial encounter (principal); M81.0 Age-related osteoporosis without current pathological fracture; Z88.5 Allergy status to narcotic agent; Z88.8 Allergy status to other drugs, medicaments and biological substances; Z79.899 Other long term (current) drug therapy; X58.XXXA Exposure to other specified factors, initial encounter
CPT/HCPCS: 96365; J0878

== ENCOUNTER 2023-05-02 02:43 | Day surgery (SDC) | payer OTHER ==
[2023-05-02 13:38] VITALS: BP 117/66
== END 2023-05-02 13:55 | disposition home or self-care (01) ==
LOC: ATC 02:43
DX: T84.54XA Infection and inflammatory reaction due to internal left knee prosthesis, initial encounter (principal); M81.0 Age-related osteoporosis without current pathological fracture; Z88.5 Allergy status to narcotic agent; X58.XXXA Exposure to other specified factors, initial encounter
CPT/HCPCS: 96365; J0878

== ENCOUNTER 2023-05-03 03:20 | Day surgery (SDC) | payer OTHER ==
[2023-05-03 12:56] VITALS: BP 118/60
== END 2023-05-03 13:25 | disposition home or self-care (01) ==
LOC: ATC 03:20
DX: T84.54XA Infection and inflammatory reaction due to internal left knee prosthesis, initial encounter (principal); M81.0 Age-related osteoporosis without current pathological fracture; Z88.5 Allergy status to narcotic agent
CPT/HCPCS: 96365; J0878

== ENCOUNTER 2023-05-15 12:53 | Day surgery (SDC) | payer OTHER ==
[~2023-05-15] VITALS: Ht 170.2 cm; Wt 90.5 kg
[2023-05-15 16:06] VITALS: BP 115/78
--- NOTE | 2023-05-15 16:08 | NUR ---
05/15/23 1608 Sharon Oconnor IV DC'D/CATHETER WNL
== END 2023-05-15 15:53 | disposition home or self-care (01) ==
LOC: ORSCSDS 12:53
PROVIDERS: Internal Medicine Gastroenterology
PROC: 0DBE8ZX Excision of Large Intestine, Via Natural or Artificial Opening Endoscopic, Diagnostic (ICD-10-PCS; principal; 2023-05-15 14:45)
PROC: 0DB78ZX Excision of Stomach, Pylorus, Via Natural or Artificial Opening Endoscopic, Diagnostic (ICD-10-PCS; principal; 2023-05-15 14:45)
PROC: 0DB98ZX Excision of Duodenum, Via Natural or Artificial Opening Endoscopic, Diagnostic (ICD-10-PCS; principal; 2023-05-15 14:45)
DX: R19.7 Diarrhea, unspecified (principal); K29.40 Chronic atrophic gastritis without bleeding; K52.9 Noninfective gastroenteritis and colitis, unspecified; K29.80 Duodenitis without bleeding; Z86.010 Personal history of colon polyps; K58.9 Irritable bowel syndrome, unspecified; E78.5 Hyperlipidemia, unspecified; Z79.899 Other long term (current) drug therapy; K76.0 Fatty (change of) liver, not elsewhere classified; Z87.891 Personal history of nicotine dependence; Z98.84 Bariatric surgery status
CPT/HCPCS: 88305; 88341; 88342; J0461; J2001; J2405; J2704; J7120; Q9968

== ENCOUNTER 2023-12-03 11:09 | Day surgery (SDC) | payer OTHER ==
[~2023-12-03] VITALS: Ht 170.2 cm; Wt 102.5 kg
[~2023-12-03 11:09] MED LIST changes: +Atropine Sulfate 0.1 MG/ML 10ML SYR ONE; +Glycopyrrolate 0.2 MG/ML 1MLVIAL ONE; +Lactated Ringer's 1,000 ML IV ONE; +Lidocaine 2% 5 ML SDV ONE; +Lidocaine HCl/Pf 1% 5 ML VIAL ONE; +Methylene Blue 1% 100 MG/10 ML VIAL ONE; +Ondansetron HCl 2 MG / ML 2ML Vial ONE; +ePHEDrine Sulfate 50 MG/ML 1ML Injection ONE
[2023-12-03] MEDS ORDERED: BENZ100A PO (11:48)
[2023-12-03] MEDS ORDERED: Lactated Ringer's 1,000 ML IV ONE (11:56)
[2023-12-03] MEDS ORDERED: propofoL 50 ML IV ONE (12:36)
[2023-12-03 13:31] VITALS: BP 105/62
== END 2023-12-03 13:37 | disposition home or self-care (01) ==
LOC: ORSCSDS 11:09
PROVIDERS: Internal Medicine Gastroenterology
PROC: 0DJ08ZZ Inspection of Upper Intestinal Tract, Via Natural or Artificial Opening Endoscopic (ICD-10-PCS; principal; 2023-12-03 12:15)
PROC: 0D757ZZ Dilation of Esophagus, Via Natural or Artificial Opening (ICD-10-PCS; principal; 2023-12-03 12:15)
DX: R93.3 Abnormal findings on diagnostic imaging of other parts of digestive tract (principal); R13.10 Dysphagia, unspecified; K31.89 Other diseases of stomach and duodenum; R63.4 Abnormal weight loss; N18.9 Chronic kidney disease, unspecified; K21.9 Gastro-esophageal reflux disease without esophagitis; Z79.82 Long term (current) use of aspirin; Z79.899 Other long term (current) drug therapy
CPT/HCPCS: J0461; J2001; J2405; J2704; J7120; Q9968

== ENCOUNTER → 2024-01-04 | Outpatient (CLI) | payer OTHER ==
[~2024-01-04] MED LIST changes: -Atropine Sulfate 0.1 MG/ML 10ML SYR ONE; +BENZ100A PO; -Glycopyrrolate 0.2 MG/ML 1MLVIAL ONE; -Lactated Ringer's 1,000 ML IV ONE; -Lidocaine 2% 5 ML SDV ONE; -Lidocaine HCl/Pf 1% 5 ML VIAL ONE; -Methylene Blue 1% 100 MG/10 ML VIAL ONE; -Ondansetron HCl 2 MG / ML 2ML Vial ONE; -ePHEDrine Sulfate 50 MG/ML 1ML Injection ONE
[2024-01-04 10:47] LABS: Source, Urine Clean Catch
[2024-01-04 11:41] LABS: Appearance, Urine Clear (Clear); Bilirubin, Urine Neg (Neg); Blood, Urine Neg (Neg); Glucose Qualitative, Urine Neg (Neg); Ketones, Urine Neg (Neg); Leukocyte Esterase, Urine Neg (Neg); Nitrite, Urine Neg (Neg); Protein, Urine Neg (Neg); Specific Gravity, Urine 1.005 (1.003-1.022); Urobilinogen, Urine NORM (Normal); pH, Urine 6.5 (5.0-8.0)
[2024-01-04 11:46] LABS: Color, Urine Pale Yellow (P-Yellow)
[2024-01-04 12:08] LABS: Creatinine, Urine Random 9.73 mg/dL (27.00-270.00)
[2024-01-04 12:10] LABS: Protein, Urine Random <5.0 mg/dL (0.0-11.9); Protein/Creat Ratio, Ur Random Unable to Calculate
== END | disposition home or self-care (01) ==
LOC: LAB SHORT 10:44 → LAB 10:44
PROVIDERS: Hospitalist
DX: N18.2 Chronic kidney disease, stage 2 (mild) (principal); R31.9 Hematuria, unspecified
CPT/HCPCS: 81003; 82570; 84156

== ENCOUNTER 2024-05-17 11:51 | Day surgery (SDC) | payer OTHER ==
[~2024-05-17] VITALS: Ht 170.2 cm; Wt 108.2 kg
[~2024-05-17 11:51] MED LIST changes: +Amitriptyline H10 MG PO; +Atropine Sulfate 0.1 MG/ML 10ML SYR ONE; +BUTALBITAL-ACE1 EAC3 PO; +DOXY100 PO; +Glycopyrrolate 0.2 MG/ML 1MLVIAL ONE; +IPRAT-ALBUT 0.5-3 ML SC; +Lactated Ringer's 1,000 ML IV ONE; +Lidocaine 2% 5 ML SDV ONE; +Lidocaine HCl/Pf 1% 5 ML VIAL ONE; +Ondansetron HCl 2 MG / ML 2ML Vial ONE; +PRED20; +TERIPARATIDE SC; +ePHEDrine Sulfate 50 MG/ML 1ML Injection ONE
--- NOTE | 2024-05-17 13:33 | NUR ---
05/17/24 1333 VIDHI SIFUENTES 2 ENEMAS-POORPREP PT TO RESCHEDULE 2X PREP WITH GI CLINIC. END NOTE RDS
== END 2024-05-17 13:15 | disposition home or self-care (01) ==
LOC: ORSCSDS 11:51
DX: Z86.0100 Personal history of colon polyps, unspecified (principal); Z53.9 Procedure and treatment not carried out, unspecified reason
CPT/HCPCS: J0461; J2003; J2405; J7120

== ENCOUNTER 2024-11-23 12:56 | Day surgery (SDC) | payer OTHER ==
[~2024-11-23] VITALS: Ht 170.2 cm; Wt 119.5 kg
[~2024-11-23 12:56] MED LIST changes: -Atropine Sulfate 0.1 MG/ML 10ML SYR ONE; -Lactated Ringer's 1,000 ML IV ONE; -Lidocaine 2% 5 ML SDV ONE; -Lidocaine HCl/Pf 1% 5 ML VIAL ONE
--- NOTE | 2024-11-23 14:01 | NUR ---
11/23/24 1401 RAFA EARL ONCE PT WAS ASLEEP, JELLY ROLL PAD WAS PLACED UNDER STOMACH/PANUS PER DR. VEGA REQUEST. 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
[2024-11-23 15:16] VITALS: BP 134/77
== END 2024-11-23 15:09 | disposition home or self-care (01) ==
LOC: ORSCSDS 12:56
PROVIDERS: Specialist
PROC: 0DJD8ZZ Inspection of Lower Intestinal Tract, Via Natural or Artificial Opening Endoscopic (ICD-10-PCS; principal; 2024-11-23 14:30)
DX: K50.10 Crohn's disease of large intestine without complications (principal); Z86.0100 Personal history of colon polyps, unspecified; N18.9 Chronic kidney disease, unspecified; E78.5 Hyperlipidemia, unspecified; Z99.81 Dependence on supplemental oxygen; Z79.899 Other long term (current) drug therapy; J45.909 Unspecified asthma, uncomplicated; E66.01 Morbid (severe) obesity due to excess calories; Z68.41 Body mass index [BMI] 40.0-44.9, adult; K21.9 Gastro-esophageal reflux disease without esophagitis; Z79.82 Long term (current) use of aspirin
CPT/HCPCS: J0461; J2003; J2405; J2704; J7120

== ENCOUNTER → 2024-12-09 | Outpatient (CLI) | payer OTHER ==
[~2024-12-09] MED LIST changes: -Glycopyrrolate 0.2 MG/ML 1MLVIAL ONE; -Ondansetron HCl 2 MG / ML 2ML Vial ONE; -ePHEDrine Sulfate 50 MG/ML 1ML Injection ONE
[2024-12-09 17:50] LABS: Ferritin, Serum 217.0 ng/mL (8-252); Total Iron Binding Capacity 276.0 ug/dL (250-450)
== END ==
LOC: LAB SHORT 15:39 → LAB 15:39
PROVIDERS: Physician Assistant
DX: D50.9 Iron deficiency anemia, unspecified (principal)
CPT/HCPCS: 82728; 83540; 83550

== ENCOUNTER → 2024-12-09 | Outpatient (CLI) | payer OTHER ==
[2024-12-09 14:23] LABS: BASOPHILS ABSOLUTE AUTO 0.03 K/mm3 (0.00-0.23); BASOPHILS PERCENT AUTO 0 % (0-2); EOSINOPHILS ABSOLUTE AUTO 0.20 K/mm3 (0.00-0.68); EOSINOPHILS PERCENT AUTO 3 % (0-6); Hematocrit 35.8 % (33.0-51.0); Hemoglobin 11.6 g/dL (11.5-16.0); IMMATURE GRAN ABSOLUTE AUTO 0.02 K/mm3 (0.00-0.10); IMMATURE GRAN PERCENT AUTO 0 % (0-1); LYMPHOCYTES ABSOLUTE AUTO 2.34 K/mm3 (0.84-5.20); LYMPHOCYTES PERCENT AUTO 31 % (21-46); MONOCYTES ABSOLUTE AUTO 0.53 K/mm3 (0.16-1.47); MONOCYTES PERCENT AUTO 7 % (4-13); Mean Corpuscular HGB Conc 32.4 g/dL (31.5-36.5); Mean Corpuscular Volume 98 fL (80-100); NEUTROPHILS ABSOLUTE AUTO 4.47 K/mm3 (1.96-9.15); NEUTROPHILS PERCENT AUTO 59 % (41-73); NRBC ABSOLUTE 0.00 K/mm3 (0.00-0.02); NRBC Auto 0.0 /100 WBC (0.0-0.2); Platelet Count 258 K/mm3 (150-400); RDW Coefficient Variation 13.2 % (11.7-14.2); RDW Standard Deviation 47.4 fL (35.1-46.3)
[2024-12-09 14:35] LABS: Alanine Aminotransfer (ALT/SGP 30.0 U/L (12-78); Albumin, Blood 3.5 g/dL (3.4-5.0); Albumin/Globulin Ratio 1.1 (0.8-1.8); Anion Gap 14.0 mmol/L (3-11); Aspartate Aminotrans (AST/SGOT 17.0 U/L (12-37); Bilirubin, Total 0.2 mg/dL (0.1-1.0); Blood Urea Nitrogen 34.0 mg/dL (8-24); CO2, Blood 26.0 mmol/L (21-32); Calcium, Blood 8.7 mg/dL (8.5-10.1); Chloride, Blood 104.0 mmol/L (98-108); Creatinine, Blood 1.11 mg/dL (0.40-1.00); Globulin, Blood 3.2 g/dL (2.2-4.0); Glucose, Blood 101.0 mg/dL (70-99); Potassium, Blood 4.7 mmol/L (3.5-5.5); Sodium, Blood 139.0 mmol/L (136-145); Total Protein, Blood 6.7 g/dL (6.4-8.2)
== END ==
LOC: LAB 14:19 → LAB SHORT 14:19
PROVIDERS: Physician Assistant
DX: R55 Syncope and collapse (principal)
CPT/HCPCS: 80053; 85025